=== PATIENT | female | born 1950 | race Caucasian/White ===

== ENCOUNTER → 2017-01-23 | Outpatient (CLI) | payer BC ==
--- NOTE | 2017-01-24 08:00 | MM ---
Reason for exam: screening (asymptomatic). Last mammogram was performed 1 year and 4 months ago. History: Patient is postmenopausal and history of colon cancer. Took estrogen for 2 years. Physical Findings: A clinical breast exam by your physician is recommended on an annual basis and results should be correlated with mammographic findings. MG Screening Mammo w CAD Bilateral CC and MLO view(s) were taken. Prior study comparison: September 11, 2015, bilateral MG screening mammo w CAD. August 27, 2013, [facility] DIGITAL RIGHT MAMMOGRAM w/CAD. August 20, 2013, bilateral digital screening mammo w/CAD. February 24, 2011, bilateral digital screening mammo w/CAD. The breast tissue is extremely dense which could obscure a lesion on mammography. No significant changes when compared with prior studies. ASSESSMENT: Negative, BI-RAD 1 RECOMMENDATION: Routine screening mammogram of both breasts in 1 year.
== END | disposition home or self-care (01) ==
LOC: RADMAMWWP 15:11
PROVIDERS: ATTEND Internal Medicine
DX: Z12.31 Encounter for screening mammogram for malignant neoplasm of breast (principal)

== ENCOUNTER → 2017-08-29 | Outpatient (CLI) | payer MEDICARE ==
--- NOTE | 2017-08-29 11:10 | US ---
EXAMINATION TYPE: US neck and supraclavicular region DATE OF EXAM: 08/29/2017 COMPARISON: NONE CLINICAL HISTORY: R59.0 Localized enlarged lymph nodes. Patient stated has enlarged lymph nodes x 1 m onth at upper neck with right side > left side, and also noted midline skin neck prominence. US NECK: multiple lymph nodes are imaged at bilateral upper neck with largest right node = 1.2 x 1.5x 0.5cm and largest left neck lymph node = 2.2 x 1.4 x 0.7cm. US of bilateral supraclavicular area sh ows right node = 1.2 x 1.4 x 0.5cm. At midline skin prominence no masses are seen by US. Prominent le ft neck vein is noted unlike right neck with left diameter change from small superiorly to prominent mid and small diameter again inferiorly. Brief survey of bilateral thyroid gland showed small single nodule per side: RIGHT: # of nodules measured on right: 1 1. 0.5 X 0.4 x 0.3 cm hypoechoic mixed nodule at the mid pole with well-defined margins. This nodu le is wider than tall and shows intranodular vascularity. LEFT: # of nodules measured on left: 1 1. 0.3 X 0.2 x 0.1 cm hypoechoic cystic nodule at the mid pole with well-defined margins. This nod ule is wider than tall and shows no intranodular vascularity. ISTHMUS: # of nodules measured in the isthmus: 0 Benign-appearing lymph nodes are identified by technologist throughout the bilateral neck. Visualized portion of the thyroid show small nodules. IMPRESSION: Prominent but benign-appearing bilateral neck lymph nodes. No suspicious lymphadenopathy or mass iden tified.
== END | disposition home or self-care (01) ==
LOC: RADUSWWP 08:11
PROVIDERS: ATTEND Internal Medicine
DX: R59.0 Localized enlarged lymph nodes (principal)
CPT/HCPCS: 76536

== ENCOUNTER 2018-01-18 17:26 | Emergency (ER) | payer MEDICARE ==
[2018-01-18 17:35] VITALS: RESP 18
[2018-01-18] MEDS ORDERED: SODIUM CHLORIDE 0.9% 1,000 ML IV STA (18:11)
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
[2018-01-18 19:04] LABS: ALT 190 U/L (9-52); AST 164 U/L (14-36); Albumin 4.1 g/dL (3.5-5.0); Alkaline Phosphatase 122 U/L (38-126); Amylase 51 U/L (30-110); Anion Gap 10 mmol/L; Blood Urea Nitrogen 12 mg/dL (7-17); Calcium 9.9 mg/dL (8.4-10.2); Carbon Dioxide 27 mmol/L (22-30); Chloride 97 mmol/L (98-107); Glucose 120 mg/dL (74-99); Lipase 330 U/L (23-300); Sodium 134 mmol/L (137-145); Total Bilirubin 1.1 mg/dL (0.2-1.3); Total Protein 6.8 g/dL (6.3-8.2)
[2018-01-18 19:05] LABS: Anisocytosis Moderate; HCT 36.5 % (34.0-46.0); HGB 12.4 gm/dL (11.4-16.0); MCHC 33.9 g/dL (31.0-37.0); MCV 91.5 fL (80.0-100.0); Mean Platelet Volume 7.2; Platelet Count 180 k/uL (150-450); RBC 3.99 m/uL (3.80-5.40); RDW 20.1 % (11.5-15.5)
[2018-01-18 19:09] LABS: WBC 1.7 k/uL (3.8-10.6)
[2018-01-18 19:19] LABS: Appearance,Urine Clear (Clear); Bilirubin,Urine Negative (Negative); Blood,Urine Negative (Negative); Color,Urine Yellow; Glucose,Urine (UA) Negative (Negative); Ketones,Urine Negative (Negative); Leukocyte Esterase,Urine Negative (Negative); Nitrite,Urine Negative (Negative); Protein,Urine Negative (Negative); Specific Gravity,Urine 1.022 (1.001-1.035); Urobilinogen,Urine <2.0 mg/dL (<2.0)
[2018-01-18 19:19] LABS: Potassium 3.4 mmol/L (3.5-5.1)
[2018-01-18 19:31] LABS: Eosinophils # (M) 0.03 k/uL (0-0.7); Lymphocytes # (M) 0.66 k/uL (1.0-4.8); Monocytes # (M) 0.17 k/uL (0-1.0); Neutrophils # (M) 0.83 k/uL (1.3-7.7); Neutrophils % (M) 49 %; Nucleated Red Blood Cells 0 /100 WBC (0-0); Polychromasia Present; Total Cells Counted 100
--- NOTE | 2018-01-18 19:37 | XR ---
EXAMINATION TYPE: XR KUB DATE OF EXAM: 01/18/2018 COMPARISON: NONE HISTORY: Abdominal pain TECHNIQUE: 2 views FINDINGS: 2 upright views of the abdomen were obtained and show no sign of intestinal obstruction. There is air in the right paraspinal region of the upper abdomen that apparently is air related to il eal colic anastomosis. I see no definite free air. Fecal pattern is normal. There is oral contrast in the large bowel. Lung bases are clear. There are no pathologic calcifications over the kidneys. IMPRESSION: Nonacute abdomen.
[2018-01-18 20:53] VITALS: BP 153/79; PULSE 72; TEMP 97.6
== END 2018-01-18 20:53 | disposition home or self-care (01) ==
LOC: EC 17:26
DX: D70.1 Agranulocytosis secondary to cancer chemotherapy (principal); T45.1X5A Adverse effect of antineoplastic and immunosuppressive drugs, initial encounter; R93.3 Abnormal findings on diagnostic imaging of other parts of digestive tract; C20 Malignant neoplasm of rectum; R59.0 Localized enlarged lymph nodes; N83.202 Unspecified ovarian cyst, left side; Z87.891 Personal history of nicotine dependence; I10 Essential (primary) hypertension; Z79.82 Long term (current) use of aspirin; Z79.899 Other long term (current) drug therapy; Z85.038 Personal history of other malignant neoplasm of large intestine; Z90.49 Acquired absence of other specified parts of digestive tract
CPT/HCPCS: 99284 ×2; 96360 ×2; 36415; 80053; 82150; 82565; 83605; 83690; 84520; 85025; 81003; 87040; 74018; 71260; 74177; Q9967; J1642

== ENCOUNTER → 2018-01-18 | Outpatient (CLI) | payer MEDICARE ==
[2018-01-18 13:38] LABS: Blood Urea Nitrogen 13 mg/dL (7-17)
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
== END | disposition home or self-care (01) ==
LOC: RADPROMAIN 12:48
PROVIDERS: ATTEND Internal Medicine Hematology & Oncology
DX: C78.7 Secondary malignant neoplasm of liver and intrahepatic bile duct (principal); C18.2 Malignant neoplasm of ascending colon; Q51.818 Other congenital malformations of uterus; K63.89 Other specified diseases of intestine; N83.202 Unspecified ovarian cyst, left side; R59.0 Localized enlarged lymph nodes; R91.1 Solitary pulmonary nodule
CPT/HCPCS: 82565; 84520; 71260; 74177; Q9967; J1642

== ENCOUNTER 2018-03-26 09:39 | Emergency (ER) | payer MEDICARE ==
[2018-03-26 09:46] VITALS: RESP 16
[2018-03-26] MEDS ORDERED: SODIUM CHLORIDE 0.9% 1,000 ML IV ONE (10:40)
[2018-03-26 11:21] LABS: Appearance,Urine Clear (Clear); Bilirubin,Urine Negative (Negative); Blood,Urine Small (Negative); Color,Urine Light Yellow; Glucose,Urine (UA) Negative (Negative); Ketones,Urine Negative (Negative); Leukocyte Esterase,Urine Negative (Negative); Nitrite,Urine Negative (Negative); Protein,Urine Negative (Negative); Specific Gravity,Urine 1.004 (1.001-1.035); Squamous Epithelial Cell,Urine <1 /hpf (0-4); Urobilinogen,Urine <2.0 mg/dL (<2.0); WBC,Urine <1 /hpf (0-5)
[2018-03-26 11:23] LABS: INR 1.1 (<1.2); Partial Thromboplastin Time 22.8 sec (22.0-30.0); Prothrombin Time 10.7 sec (9.0-12.0)
[2018-03-26 11:26] LABS: ALT 74 U/L (9-52); AST 91 U/L (14-36); Albumin 3.2 g/dL (3.5-5.0); Alkaline Phosphatase 165 U/L (38-126); Anion Gap 8 mmol/L; Blood Urea Nitrogen 8 mg/dL (7-17); Calcium 8.8 mg/dL (8.4-10.2); Carbon Dioxide 32 mmol/L (22-30); Chloride 98 mmol/L (98-107); Glucose 100 mg/dL (74-99); Sodium 138 mmol/L (137-145); Total Bilirubin 0.9 mg/dL (0.2-1.3); Total Protein 5.5 g/dL (6.3-8.2)
--- NOTE | 2018-03-26 11:27 | ED ---
Female Urogenital HPI <Nasir Salvador - Last Filed: 03/26/18 13:39> - General Source: patient, RN notes reviewed, old records reviewed Mode of arrival: ambulatory Limitations: no limitations <FrankCelia - Last Filed: 03/26/18 13:59> - General Chief complaint: Vaginal Bleeding Stated complaint: Urogenital Time Seen by Provider: 03/26/18 10:21 - History of Present Illness Initial comments: This patient's a 67-year-old female history of ovarian cancer currently undergoing chemotherapy treatment. She reports that every 2 weeks she receives chemotherapy through her port. Patient presents today chief complaint of an abnormal bulge in her pelvic region. Patient states that she noticed some vaginal bleeding and a bulge when she looked with a mere. Patient states that she's had no heavy lifting. She denies any significant pain or tenderness. She states that she's had no fever or chills. No changes in urination or bowel habits. No vomiting. Patient states that she's also had a few episodes of diarrhea earlier in the week. Patient denies any recent fever, chills, shortness of breath, chest pain, back pain, abdominal pain, numbness or tingling, dysuria or hematuria, constipation or diarrhea, headaches or visual changes, or any other current symptoms (Celia Marie) - Related Data Home Medications Medication Instructions Recorded Confirmed Aspirin 81 mg PO DAILY 09/22/17 03/26/18 Calcium Carbonate [Calcium] 1,200 mg PO DAILY 09/22/17 03/26/18 Flaxseed Oil [Paul [employer]s-3 Flaxseed Oil] 1,000 mg PO DAILY 09/22/17 03/26/18 Lisinopril-Hctz 10-12.5 mg 1 tab PO DAILY 09/22/17 03/26/18 [Zestoretic 10-12.5] Multivitamin with Iron 1 tab PO DAILY 09/22/17 03/26/18 [Multivitamins with Iron] Red Yeast Rice 600 mg PO DAILY 09/22/17 03/26/18 L.acidoph,Paracasei, B.lactis 1 cap PO DAILY 01/18/18 03/26/18 [Probiotic] Potassium 99 mg PO DAILY 03/26/18 03/26/18 Previous Rx's Medication Instructions Recorded Magnesium Oxide [Mag-Oxide] 200 mg PO DAILY #7 tablet 03/26/18 Potassium Chloride ER [K-Dur 20] 20 meq PO BID #10 tab 03/26/18 Allergies Allergy/AdvReac Type Severity Reaction Status Date / Time No Known Allergies Allergy Verified 03/26/18 09:51 Review of Systems ROS Other: All systems not noted in ROS Statement are negative. <Nasir Salvador - Last Filed: 03/26/18 13:39> ROS Other: All systems not noted in ROS Statement are negative. <Chrystal Marieily - Last Filed: 03/26/18 13:59> ROS Statement: Those systems with pertinent positive or pertinent negative responses have been documented in the HPI. Past Medical History Past Medical History: Cancer, Hypertension Additional Past Medical History / Comment(s): heart murmur, palpatations, intestinal polyp, colon cancer (last chemo 03/13/18), ovarian tumor History of Any Multi-Drug Resistant Organisms: None Reported Past Surgical History: Bowel Resection Additional Past Surgical History / Comment(s): 6" colon removed in 2011 Past Anesthesia/Blood Transfusion Reactions: No Reported Reaction Past Psychological History: No Psychological Hx Reported Smoking Status: Former smoker Past Alcohol Use History: Occasional Past Drug Use History: None Reported <Celia Marie - Last Filed: 03/26/18 13:59> General Exam <[place]Nasir - Last Filed: 03/26/18 13:39> Limitations: no limitations General appearance: alert, in no apparent distress Head exam: Present: atraumatic, normocephalic, normal inspection Eye exam: Present: normal appearance, PERRL, EOMI. Absent: scleral icterus, conjunctival injection, periorbital swelling ENT exam: Present: normal exam, mucous membranes moist Neck exam: Present: normal inspection. Absent: tenderness, meningismus, lymphadenopathy Respiratory exam: Present: normal lung sounds bilaterally. Absent: respiratory distress, wheezes, rales, rhonchi, stridor Cardiovascular Exam: Present: regular rate, normal rhythm, normal heart sounds. Absent: systolic murmur, diastolic murmur, rubs, gallop, clicks GI/Abdominal exam: Present: soft, normal bowel sounds. Absent: distended, tenderness, guarding, rebound, rigid External exam: Present: normal external exam Speculum exam: Present: other (Patient appears to have what appears to be a uterine prolapse. Small amount of bleeding from the cervical os.). Absent: normal speculum exam By manual exam: Present: normal by manual exam. Absent: cervical motion tenderness, adnexal tenderness, adnexal mass, uterine enlargement, uterine tenderness Extremities exam: Present: normal inspection, full ROM, normal capillary refill. Absent: tenderness, pedal edema, joint swelling, calf tenderness Back exam: Present: normal inspection Neurological exam: Present: alert, oriented X3, CN II-XII intact <Celia Marie - Last Filed: 03/26/18 13:59> - General Exam Comments Initial Comments: This is a 67-year-old female. Alert and oriented. No acute distress. ( Celia Marie) Vital Signs 03/26/18 03/26/18 03/26/18 09:43 12:52 13:49 Temperature 98.4 F 97.8 F 98.2 F Pulse Rate 110 H 66 69 Respiratory 16 16 16 Rate Blood Pressure 143/79 152/67 142/66 O2 Sat by Pulse 100 100 100 Oximetry - Reevaluation(s) Reevaluation #1: 03/26/18 13:39 PA supervision: I did personally do a [id number] encounter with the patient did discuss findings with her and did review the imaging and lab work the patient had performed. I do agree with the assessment and plan. (Nasir Salvador) Medical Decision Making - Lab Data Result diagrams: 03/26/18 11:01 03/26/18 11:01 <Nasir Salvador - Last Filed: 03/26/18 13:39> - Lab Data Result diagrams: 03/26/18 11:01 03/26/18 11:01 - Radiology Data Radiology results: report reviewed <Celia Marie - Last Filed: 03/26/18 13:59> - Medical Decision Making 67-year-old female presents with a uterine bulge. Patient was concerned she's been no some minor bleeding from it. Denies any heavy lifting or feeling of the bulge. Patient appears to have a uterine prolapse on vaginal exam. She does have history of ovarian cancer. With this history 100 check further lab work. She is undergoing chemo treatment.Patient's lab work shows a pink a white blood cell count of 2.5. RBCs 3.09. Hemoglobin 11.1. Chem panel does reveal low potassium of 2.5. She reports she is chronically low potassium. He states this also contributed to her dehydration and slightly from diarrhea. She does have a low magnesium as well 1.4. Given magnesium oxide. She does have elevated liver enzymes 91 AST, ALTs 74. Alk phos 165. Patient's UA is negative for any infection. Patient informed of lab results. I discussed that I'll give her dose of potassium here in the emergency department. Patient is anxious to leave. She will not stay for IV potassium. I also will replace her magnesium. Discussed that she does follow up with her primary care provider regards to a symptoms of diarrhea likely contaminated to the low potassium. Patient also had a transvaginal ultrasound. Results were dictated below. Discussed that she needs follow-up with her coordinate measuring machine technician and oncologist regards to the results. Patient agrees treatment plan will comply. Discussed lab coordinate measuring machine technician regards to uterine prolapse as well as a history of ovarian cancer and possibility of endometrial cancer swell. Patient understands treatment plan will comply. Return parameters were discussed. (Celia Marie) - Lab Data Lab Results 03/26/18 03/26/18 03/26/18 Range/Units 11:01 11:01 11:01 WBC 2.5 L (3.8-10.6) k/uL RBC 3.09 L (3.80-5.40) m/uL Hgb 11.1 L (11.4-16.0) gm/dL Hct 32.1 L (34.0-46.0) % MCV 104.1 H (80.0-100.0) fL MCH 36.1 H (25.0-35.0) pg MCHC 34.7 (31.0-37.0) g/dL RDW 16.5 H (11.5-15.5) % Plt Count 150 (150-450) k/uL Neutrophils % (Manual) 29 % Lymphocytes % (Manual) 49 % Monocytes % (Manual) 20 % Eosinophils % (Manual) 2 % Neutrophils # (Manual) 0.73 L (1.3-7.7) k/uL Lymphocytes # (Manual) 1.23 (1.0-4.8) k/uL Monocytes # (Manual) 0.50 (0-1.0) k/uL Eosinophils # (Manual) 0.05 (0-0.7) k/uL Nucleated RBCs 0 (0-0) /100 WBC Poikilocytosis (manual Present Anisocytosis Slight Macrocytosis Moderate PT 10.7 (9.0-12.0) sec INR 1.1 (<1.2) APTT 22.8 (22.0-30.0) sec Sodium 138 (137-145) mmol/L Potassium 2.5 L* (3.5-5.1) mmol/L Chloride 98 (98-107) mmol/L Carbon Dioxide 32 H (22-30) mmol/L Anion Gap 8 mmol/L BUN 8 (7-17) mg/dL Creatinine 0.43 L (0.52-1.04) mg/dL Est GFR (CKD-EPI)AfAm >90 (>60 ml/min/1.73 sqM) Est GFR (CKD-EPI)NonAf >90 (>60 ml/min/1.73 sqM) Glucose 100 H (74-99) mg/dL Calcium 8.8 (8.4-10.2) mg/dL Magnesium (1.6-2.3) mg/dL Total Bilirubin 0.9 (0.2-1.3) mg/dL AST 91 H (14-36) U/L ALT 74 H (9-52) U/L Alkaline Phosphatase 165 H (38-126) U/L Total Protein 5.5 L (6.3-8.2) g/dL Albumin 3.2 L (3.5-5.0) g/dL Urine Color Urine Appearance (Clear) Urine pH (5.0-8.0) Ur Specific [place] (1.001-1.035) Urine Protein (Negative) Urine Glucose (UA) (Negative) Urine Ketones (Negative) Urine Blood (Negative) Urine Nitrite (Negative) Urine Bilirubin (Negative) Urine Urobilinogen (<2.0) mg/dL Ur Leukocyte Esterase (Negative) Urine WBC (0-5) /hpf Ur Squamous Epith Cells (0-4) /hpf 03/26/18 03/26/18 Range/Units 11:01 11:01 WBC (3.8-10.6) k/uL RBC (3.80-5.40) m/uL Hgb (11.4-16.0) gm/dL Hct (34.0-46.0) % MCV (80.0-100.0) fL MCH (25.0-35.0) pg MCHC (31.0-37.0) g/dL RDW (11.5-15.5) % Plt Count (150-450) k/uL Neutrophils % (Manual) % Lymphocytes % (Manual) % Monocytes % (Manual) % Eosinophils % (Manual) % Neutrophils # (Manual) (1.3-7.7) k/uL Lymphocytes # (Manual) (1.0-4.8) k/uL Monocytes # (Manual) (0-1.0) k/uL Eosinophils # (Manual) (0-0.7) k/uL Nucleated RBCs (0-0) /100 WBC Poikilocytosis (manual Anisocytosis Macrocytosis PT (9.0-12.0) sec INR (<1.2) APTT (22.0-30.0) sec Sodium (137-145) mmol/L Potassium (3.5-5.1) mmol/L Chloride (98-107) mmol/L Carbon Dioxide (22-30) mmol/L Anion Gap mmol/L BUN (7-17) mg/dL Creatinine (0.52-1.04) mg/dL Est GFR (CKD-EPI)AfAm (>60 ml/min/1.73 sqM) Est GFR (CKD-EPI)NonAf (>60 ml/min/1.73 sqM) Glucose (74-99) mg/dL Calcium (8.4-10.2) mg/dL Magnesium 1.4 L (1.6-2.3) mg/dL Total Bilirubin (0.2-1.3) mg/dL AST (14-36) U/L ALT (9-52) U/L Alkaline Phosphatase (38-126) U/L Total Protein (6.3-8.2) g/dL Albumin (3.5-5.0) g/dL Urine Color Light Yellow Urine Appearance Clear (Clear) Urine pH 7.0 (5.0-8.0) Ur Specific [place] 1.004 (1.001-1.035) Urine Protein Negative (Negative) Urine Glucose (UA) Negative (Negative) Urine Ketones Negative (Negative) Urine Blood Small H (Negative) Urine Nitrite Negative (Negative) Urine Bilirubin Negative (Negative) Urine Urobilinogen <2.0 (<2.0) mg/dL Ur Leukocyte Esterase Negative (Negative) Urine WBC <1 (0-5) /hpf Ur Squamous Epith Cells <1 (0-4) /hpf - Radiology Data X-ray shows thickened heterogeneous endometrium measuring 1.1 cm. Differential could include endometrial hyperplasia, polyps and endometrial carcinoma. Follow -up is recommended. There is too fundal uterine fibroids each measuring 2.8 and 2.3. Is a 2.2 cm solid lesion in the right ovary. Ovarian neoplasm is the differential. Considering contrast enhanced MRI of the pelvis to better characterize. (Celia Marie) Disposition <Nasir Salvador - Last Filed: 03/26/18 13:39> Is patient prescribed a controlled substance at d/c from ED?: No If prescribed controlled substance>3 days was MAPS reviewed?: No When asked, does pt state using other controlled substances?: No Time of Disposition: 13:30 <Celia Marie - Last Filed: 03/26/18 13:59> Clinical Impression: Uterine prolapse, History of ovarian cancer, Hypokalemia, Hypomagnesemia Disposition: HOME SELF-CARE Condition: Good Instructions: Uterine Prolapse (ED) Additional Instructions: Follow-up with primary care provider regards to low potassium and magnesium also. Patient can replace them appropriately within prescriptions. Follow-up with her oncologist and coordinate measuring machine technician. Scheduled appointment with a coordinate measuring machine technician to discuss uterine prolapse. Return to the emergency department if any alarming signs or symptoms occur. Prescriptions: Magnesium Oxide [Mag-Oxide] 200 mg PO DAILY #7 tablet Potassium Chloride ER [K-Dur 20] 20 meq PO BID #10 tab Referrals: Summer Reza MD [Primary Care Provider] - 1-2 days Germaine Sheldon MD [STAFF PHYSICIAN] - 1-2 days
[2018-03-26 11:28] LABS: Potassium 2.5 mmol/L (3.5-5.1)
[2018-03-26 11:31] LABS: Anisocytosis Slight; HCT 32.1 % (34.0-46.0); HGB 11.1 gm/dL (11.4-16.0); MCH 36.1 pg (25.0-35.0); MCHC 34.7 g/dL (31.0-37.0); MCV 104.1 fL (80.0-100.0); Macrocytosis Moderate; Mean Platelet Volume 7.7; Platelet Count 150 k/uL (150-450); RBC 3.09 m/uL (3.80-5.40); RDW 16.5 % (11.5-15.5); WBC 2.5 k/uL (3.8-10.6)
[2018-03-26] MEDS ORDERED: POTASSIUM CHLORIDE ER 20 MEQ TAB.ER PO STA (11:41)
--- NOTE | 2018-03-26 12:07 | US ---
EXAMINATION TYPE: US transvaginal DATE OF EXAM: 03/26/2018 COMPARISON: CT 01/18/2018 CLINICAL HISTORY: 67-year-old female Pain. Pt states light vaginal bleeding that started this AM, and a "bulging" in the vagina TECHNIQUE: Transvaginal (TV). Date of LMP: age 51 FINDINGS: EXAM MEASUREMENTS: Uterus: 7.2 x 3.9 x 5.2 cm Endometrial Stripe: 1.1 cm Right Ovary: 3.0 x 2.3 x 1.7 cm Left Ovary: 2.1 x 1.0 1.0 cm 1. Uterus: Retroverted there are 2 fundal fibroids, on the right measuring 2.7 x 2.8 x 2.5 cm and on the left measuring 2.3 x 1.6 x 1.9 cm 2. Endometrium: Thickened, heterogeneous 3. Right Ovary: Hypoechoic, solid, vascular lesion= 2.2 x 1.6 x 1.4 cm 4. Left Ovary: Appeared wnl 5. Bilateral Adnexa: wnl 6. Posterior cul-de-sac: wnl IMPRESSION: 1. Thickened heterogeneous endometrium measuring 1.1 cm. Differential considerations include endometr ial hyperplasia, polyps, and endometrial carcinoma. Appropriate follow-up is recommended. 2. Two fundal uterine fibroids measuring 2.8 cm and 2.3 cm. 3. A 2.2 cm solid lesion in the right ovary. An ovarian neoplasm is in the differential. Consider con trast enhanced female pelvic MRI to better characterize.
[2018-03-26 12:14] LABS: Eosinophils # (M) 0.05 k/uL (0-0.7); Lymphocytes # (M) 1.23 k/uL (1.0-4.8); Neutrophils # (M) 0.73 k/uL (1.3-7.7); Neutrophils % (M) 29 %; Nucleated Red Blood Cells 0 /100 WBC (0-0); Total Cells Counted 100
[2018-03-26 12:15] LABS: Poikilocytosis (M) Present
[2018-03-26] MEDS ORDERED: MAGNESIUM OXIDE 400 MG TAB PO STA (13:26)
[2018-03-26 13:49] VITALS: BP 142/66; PULSE 69; TEMP 98.2
== END 2018-03-26 14:00 | disposition home or self-care (01) ==
LOC: EC 09:39
DX: N81.4 Uterovaginal prolapse, unspecified (principal); E87.6 Hypokalemia; E83.42 Hypomagnesemia; C56.9 Malignant neoplasm of unspecified ovary; I10 Essential (primary) hypertension; Z85.038 Personal history of other malignant neoplasm of large intestine; Z87.891 Personal history of nicotine dependence; Z79.82 Long term (current) use of aspirin; Z79.899 Other long term (current) drug therapy
CPT/HCPCS: 36415; 76830; 80053; 81001; 83735; 85025; 85610; 85730; 93975; 96360; 99284

== ENCOUNTER → 2018-05-18 | Outpatient (CLI) | payer MEDICARE ==
[2018-05-18 11:37] LABS: Blood Urea Nitrogen 10 mg/dL (7-17)
--- NOTE | 2018-05-18 12:54 | CT ---
EXAMINATION TYPE: CT ChestAbdPelvis w con DATE OF EXAM: 05/18/2018 COMPARISON: 01/18/2018 HISTORY: Colon cancer, Metastatic to liver CT DLP: 547.20 mGycm CONTRAST: CT scan of the chest, abdomen and pelvis is performed with Oral Contrast and with IV Contrast, patien t injected with 100 ml mL of Isovue 300. CT Chest: LUNGS: The lungs are clear and free of infiltrate or atelectasis. No pulmonary nodule or mass is det ected. No pleural effusion or CT evidence of interstitial lung disease. MEDIASTINUM: Thoracic aorta is of normal caliber. The heart is not enlarged. No evidence for media stinal mass or adenopathy. HILAR STRUCTURES: No evidence for mass. No hilar adenopathy is appreciated. OTHER: No significant abnormality. CONTRAST CT ABDOMEN AND PELVIS FINDINGS: LIVER/GB: Multiple hypoattenuating lesions are again seen throughout the liver however appear to be l ess distinct and less in number versus prior examination. The largest lesion measures 1.4 cm within t he anterior segment right hepatic lobe versus 2 cm previously. Stable simple cyst left hepatic lobe t he falciform ligament measuring 3 cm. Gallbladder is unremarkable. PANCREAS: No inflammation. No distinct mass. SPLEEN: No splenic enlargement. No lesion seen. ADRENALS: Stable left adrenal nodule. Right adrenal gland is unremarkable. No thickening. KIDNEYS/BLADDER: No hydronephrosis. No nephrolithiasis. Simple cyst upper pole left kidney. BOWEL: Postoperative changes of partial right hemicolectomy. Normal bowel caliber. No inflammation. GENITAL ORGANS: Leiomyomatous change of the uterus is stable. LYMPH NODES: Enlarging adenopathy to the right of the celiac axis measuring 2.6 cm versus 1.6 cm prev iously. Calcified lymph node anterior to the right psoas musculature. Shotty retroperitoneal lymph no de seen measuring less than 1 cm. AORTA: No significant abnormality. OSSEOUS STRUCTURES: No significant abnormality is seen. OTHER: No significant additional abnormality is seen. IMPRESSION: 1. Decrease in overall number and size of hepatic lesions. 2. Enlarging adenopathy to the right of the celiac artery. 3. Improving retroperitoneal adenopathy. 4. Stable left adrenal nodule.
== END | disposition home or self-care (01) ==
LOC: RADCTMAIN 10:49
PROVIDERS: ATTEND Internal Medicine Hematology & Oncology
DX: C78.7 Secondary malignant neoplasm of liver and intrahepatic bile duct (principal); C18.2 Malignant neoplasm of ascending colon; E27.8 Other specified disorders of adrenal gland; R59.1 Generalized enlarged lymph nodes
CPT/HCPCS: 82565; 84520; 71260; 74177; 36415; Q9967

== ENCOUNTER → 2018-08-09 | Outpatient (CLI) | payer MEDICARE ==
--- NOTE | 2018-08-09 11:21 | CT ---
EXAMINATION TYPE: CT ChestAbdPelvis w con DATE OF EXAM: 08/09/2018 COMPARISON: Prior CT chest abdomen pelvis 05/18/2018 HISTORY: Colon carcinoma, C 18.2, subsequent CT DLP: 601.4 mGycm Automated exposure control for dose reduction was used. CONTRAST: CT scan of the chest, abdomen and pelvis is performed with Oral Contrast and with IV Contrast, patien t injected with 100 mL of Isovue 300. FINDINGS: LUNGS: There are bilateral pleural effusions which have developed in the interval. Bilateral lung nod ules are present and has developed in the interval, right upper lobe soft tissue mass axial image 25 measures 11 mm, axial image 18 shows right upper lobe mass measuring 10 to 11 mm. Subcentimeter nodul e noted axial image 11 right upper lobe. Left upper lobe nodularity also present axial image 9 and 13 , subcentimeter nodules are present also on axial image 23 and 25, 26. MEDIASTINUM: Extensive mediastinal and hilar adenopathy has developed in the interval. Prevascular no wade are present, precarinal no, subcarinal node are all enlarged, bilateral hilar nodes are enlarged. AORTA: No significant abnormality is seen. OTHER: No additional significant abnormality is seen. LIVER/GB: 2 numerous to count low dense foci are scattered within the liver and a developed in the in terval. The largest measures approximately 7.2 cm. PANCREAS: No significant abnormality is seen. SPLEEN: No significant abnormality is seen. ADRENALS: No significant abnormality is seen. KIDNEYS: No significant abnormality is seen. REPRODUCTIVE ORGANS: No gross abnormality seen. BOWEL: No significant abnormality is seen. FREE AIR: No Free Air visible. ASCITES: There is some free fluid about the liver and along the paracolic gutters and in the pelvis. RETROPERITONEAL ADENOPATHY: Large retroperitoneal mass may represent confluent adenopathy and measur es from the level of the diaphragms inferiorly to the proximal common iliac vessels approximately 19 cm in cephalad to caudal dimension by 9.2 cm in transverse dimension by 10 cm in AP dimension encasin g the superior mesenteric artery and branches, portion of the proximal superior mesenteric artery, sp lenic vein and proximal renal arteries, portion of the spinal cord splenoportal confluence. There is some displacement of the inferior vena cava anteriorly. Encasement of the aorta is noted. LYMPH NODES: Adenopathy also present within the pelvis anterior to the uterus, there is some mass eff ect on the urinary bladder. Extensive mesenteric adenopathy is present. URINARY BLADDER: No significant abnormality is seen. PELVIC ADENOPATHY: Fluid density mass pelvis causes some mass effect on the urinary bladder.. OSSEOUS STRUCTURES: No significant abnormality is seen. IMPRESSION: Extensive metastatic disease is noted and has developed in the interval.
== END ==
LOC: RADPROMAIN 07:35
PROVIDERS: ATTEND Internal Medicine Hematology & Oncology
DX: C18.2 Malignant neoplasm of ascending colon (principal); C78.01 Secondary malignant neoplasm of right lung; R59.0 Localized enlarged lymph nodes
CPT/HCPCS: 82565; 84520; 71260; 74177; J1642; Q9967

== ENCOUNTER 2018-08-18 06:49 | Inpatient (IN) | payer MEDICARE ==
[2018-08-18] MEDS ORDERED: SODIUM CHLORIDE 0.9% 1,000 ML IV STA (07:11)
--- NOTE | 2018-08-18 07:20 | ED ---
General Adult HPI - General Chief complaint: Weakness Stated complaint: weakness Time Seen by Provider: 08/18/18 07:00 Source: patient, RN notes reviewed Mode of arrival: EMS Limitations: physical limitation - History of Present Illness Initial comments: This is a 68-year-old female who presents to the emergency department with a past medical history significant for colon cancer. Patient also received chemotherapy last chemotherapy treatment was on Monday. Patient comes in today because she states she was too weak to even get out of bed this morning. Patient states she has a little bit of occasional abdominal pain and occasional diarrhea. Patient is not complaining of any headache patient does not complain of any focal numbness or weakness. Patient denies any lightheadedness or near syncopal so. Patient denies any chest pain palpitations difficulty breathing or shortness of breath though she does complain of a mild cough occasionally. Patient denies any fever but she states she does have the chills. Patient denies any dysuria hematuria urinary frequency. Patient states she did have one fall and hurt her right lower back a little bit. Patient denies any hip pain or lower extremity pain. Patient denies any areas of erythema rash or lesions. - Related Data Home Medications Medication Instructions Recorded Confirmed Aspirin 81 mg PO DAILY 09/22/17 03/26/18 Calcium Carbonate [Calcium] 1,200 mg PO DAILY 09/22/17 03/26/18 Flaxseed Oil [[place]-3 Flaxseed Oil] 1,000 mg PO DAILY 09/22/17 03/26/18 Lisinopril-Hctz 10-12.5 mg 1 tab PO DAILY 09/22/17 03/26/18 [Zestoretic 10-12.5] Multivitamin with Iron 1 tab PO DAILY 09/22/17 03/26/18 [Multivitamins with Iron] Red Yeast Rice 600 mg PO DAILY 09/22/17 03/26/18 L.acidoph,Paracasei, B.lactis 1 cap PO DAILY 01/18/18 03/26/18 [Probiotic] Potassium 99 mg PO DAILY 03/26/18 03/26/18 Previous Rx's Medication Instructions Recorded Magnesium Oxide [Mag-Oxide] 200 mg PO DAILY #7 tablet 03/26/18 Potassium Chloride ER [K-Dur 20] 20 meq PO BID #10 tab 03/26/18 Allergies Allergy/AdvReac Type Severity Reaction Status Date / Time No Known Allergies Allergy Verified 03/26/18 09:51 Review of Systems ROS Statement: Those systems with pertinent positive or pertinent negative responses have been documented in the HPI. ROS Other: All systems not noted in ROS Statement are negative. Past Medical History Past Medical History: Cancer, Hypertension Additional Past Medical History / Comment(s): heart murmur, palpatations, intestinal polyp, colon cancer (last chemo 08/12/2018), ovarian tumor History of Any Multi-Drug Resistant Organisms: None Reported Past Surgical History: Bowel Resection Additional Past Surgical History / Comment(s): 6" colon removed in 2011 Past Anesthesia/Blood Transfusion Reactions: No Reported Reaction Past Psychological History: No Psychological Hx Reported Smoking Status: Former smoker Past Alcohol Use History: Occasional Past Drug Use History: None Reported General Exam - General Exam Comments Initial Comments: GENERAL: Patient is well-developed and well-nourished. Patient is nontoxic and well- hydrated and is in mild distress. ENT: Neck is soft and supple. No significant lymphadenopathy is noted. Oropharynx is clear. Moist mucous membranes. Neck has full range of motion without eliciting any pain. EYES: The sclera were anicteric and conjunctiva were pink and moist. Extraocular movements were intact and pupils were equal round and reactive to light. Eyelids were unremarkable. PULMONARY: Crackles left base CARDIOVASCULAR: There is a regular rate and rhythm without any murmurs gallops or rubs. ABDOMEN: Soft and nontender with normal bowel sounds. No palpable organomegaly was noted. There is no palpable pulsatile mass. SKIN: Skin is clear with no lesions or rashes and otherwise unremarkable. NEUROLOGIC: Patient is alert and oriented x3. Cranial nerves II through XII are grossly intact. Motor and sensory are also intact. Normal speech, volume and content. Symmetrical smile. MUSCULOSKELETAL: Normal extremities with adequate strength and full range of motion. No lower extremity swelling or edema. No calf tenderness. LYMPHATICS: No significant lymphadenopathy is noted PSYCHIATRIC: Normal psychiatric evaluation. Normal interpersonal interactions appears functionally intact in deals appropriately with others. No signs of depression. No signs of anxiety. Limitations: physical limitation Course Vital Signs 08/18/18 08/18/18 06:52 08:24 Temperature 97.0 F L Pulse Rate 101 H 86 Respiratory 19 18 Rate Blood Pressure 69/47 71/48 O2 Sat by Pulse 96 93 L Oximetry Medical Decision Making - Medical Decision Making EKG shows normal sinus rhythm at 90 bpm [place] interval 246 QRS 74 QT interval 352 QTC is 451. Patient's EKG shows no ST segment elevation or depression or T wave abnormalities are noted. Chest x-ray shows bilateral pleural effusions with bilateral airspace disease. Patient remained hypotensive after patient received 2 L of fluid so I started the patient on Levophed. I spoke with Dr. Bravo he wanted the patient treated on antibiotics specifically vancomycin and cefepime even though the patient was asymptomatic for pneumonia. At 10:30 I assumed the patient to be septic in light of the fact that we will treat for a possible pneumonia. I also got a potassium back and the patient was elevated at 7.1 it was a verified sample. I started the patient on Kayexalate insulin D50 bicarb and calcium chloride. I spoke with Dr. Alcantara because the patient will be going to the ICU. I also consult the nephrology and Dr. Bravo. I admitted the patient I wrote admitting orders. - Lab Data Result diagrams: 08/18/18 07:00 08/18/18 08:48 Lab Results 08/18/18 08/18/18 08/18/18 Range/Units 07:00 07:55 08:48 WBC 5.1 (3.8-10.6) k/uL RBC 3.62 L (3.80-5.40) m/uL Hgb 12.9 (11.4-16.0) gm/dL Hct 39.1 (34.0-46.0) % MCV 107.9 H (80.0-100.0) fL MCH 35.7 H (25.0-35.0) pg MCHC 33.1 (31.0-37.0) g/dL RDW 22.2 H (11.5-15.5) % Plt Count 147 L (150-450) k/uL Neutrophils % 65 % Lymphocytes % 29 % Monocytes % 4 % Eosinophils % 1 % Basophils % 0 % Neutrophils # 3.3 (1.3-7.7) k/uL Lymphocytes # 1.5 (1.0-4.8) k/uL Monocytes # 0.2 (0-1.0) k/uL Eosinophils # 0.0 (0-0.7) k/uL Basophils # 0.0 (0-0.2) k/uL Manual Slide Review Performed Polychromasia Present Hypochromasia Moderate Poikilocytosis (manual Present Anisocytosis Moderate Macrocytosis Marked PT (9.0-12.0) sec INR (<1.2) APTT (22.0-30.0) sec Sodium (137-145) mmol/L Potassium (3.5-5.1) mmol/L Chloride (98-107) mmol/L Carbon Dioxide (22-30) mmol/L Anion Gap mmol/L BUN (7-17) mg/dL Creatinine (0.52-1.04) mg/dL Est GFR (CKD-EPI)AfAm (>60 ml/min/1.73 sqM) Est GFR (CKD-EPI)NonAf (>60 ml/min/1.73 sqM) Glucose (74-99) mg/dL Plasma Lactic Acid Bryan 2.9 H* (0.7-2.0) mmol/L Calcium (8.4-10.2) mg/dL Magnesium (1.6-2.3) mg/dL Total Bilirubin (0.2-1.3) mg/dL AST (14-36) U/L ALT (9-52) U/L Alkaline Phosphatase (38-126) U/L Total Creatine Kinase 1246 H* (30-135) U/L CK-MB (CK-2) 3.7 H (0.0-2.4) ng/mL CK-MB (CK-2) Rel Index 0.3 Troponin I 0.077 H* (0.000-0.034) ng/mL Total Protein (6.3-8.2) g/dL Albumin (3.5-5.0) g/dL 08/18/18 08/18/18 Range/Units 08:48 08:48 WBC (3.8-10.6) k/uL RBC (3.80-5.40) m/uL Hgb (11.4-16.0) gm/dL Hct (34.0-46.0) % MCV (80.0-100.0) fL MCH (25.0-35.0) pg MCHC (31.0-37.0) g/dL RDW (11.5-15.5) % Plt Count (150-450) k/uL Neutrophils % % Lymphocytes % % Monocytes % % Eosinophils % % Basophils % % Neutrophils # (1.3-7.7) k/uL Lymphocytes # (1.0-4.8) k/uL Monocytes # (0-1.0) k/uL Eosinophils # (0-0.7) k/uL Basophils # (0-0.2) k/uL Manual Slide Review Polychromasia Hypochromasia Poikilocytosis (manual Anisocytosis Macrocytosis PT 15.5 H (9.0-12.0) sec INR 1.7 H (<1.2) APTT 27.4 (22.0-30.0) sec Sodium 137 (137-145) mmol/L Potassium 7.1 H* (3.5-5.1) mmol/L Chloride 108 H (98-107) mmol/L Carbon Dioxide 17 L (22-30) mmol/L Anion Gap 12 mmol/L BUN 90 H (7-17) mg/dL Creatinine 1.81 H (0.52-1.04) mg/dL Est GFR (CKD-EPI)AfAm 33 (>60 ml/min/1.73 sqM) Est GFR (CKD-EPI)NonAf 29 (>60 ml/min/1.73 sqM) Glucose 86 (74-99) mg/dL Plasma Lactic Acid Bryan (0.7-2.0) mmol/L Calcium 9.4 (8.4-10.2) mg/dL Magnesium 2.6 H (1.6-2.3) mg/dL Total Bilirubin 4.4 H (0.2-1.3) mg/dL AST >1500 H (14-36) U/L ALT 304 H (9-52) U/L Alkaline Phosphatase 700 H (38-126) U/L Total Creatine Kinase (30-135) U/L CK-MB (CK-2) (0.0-2.4) ng/mL CK-MB (CK-2) Rel Index Troponin I (0.000-0.034) ng/mL Total Protein 5.9 L (6.3-8.2) g/dL Albumin 2.8 L (3.5-5.0) g/dL Critical Care Time Critical Care Time: Yes Total Critical Care Time: 35 Disposition Clinical Impression: Hypotension, Hyperkalemia, Pneumonia, Elevated liver enzymes, Generalized weakness, Renal insufficiency Disposition: ADMITTED IP TO THIS HOSP Referrals: Summer Reza MD [Primary Care Provider] - 1-2 days Time of Disposition: 11:01
--- NOTE | 2018-08-18 07:39 | XR ---
EXAMINATION TYPE: XR chest 2V DATE OF EXAM: 08/18/2018 HISTORY: Weakness. REFERENCE: NONE. FINDINGS: There is bibasilar airspace disease. There are bilateral effusions. The heart is not enlarg ed. There is a MediPort in place via a right subclavian approach. IMPRESSION: 1. BIBASILAR AIRSPACE DISEASE. 2. BILATERAL EFFUSIONS.
[2018-08-18 08:01] LABS: Anisocytosis Moderate; Basophils % (A) 0 %; Eosinophils % (A) 1 %; HCT 39.1 % (34.0-46.0); HGB 12.9 gm/dL (11.4-16.0); Hypochromasia Moderate; Lymphocytes # (A) 1.5 k/uL (1.0-4.8); Lymphocytes % (A) 29 %; MCH 35.7 pg (25.0-35.0); MCHC 33.1 g/dL (31.0-37.0); MCV 107.9 fL (80.0-100.0); Macrocytosis Marked; Mean Platelet Volume 9.8; Monocytes # (A) 0.2 k/uL (0-1.0); Monocytes % (A) 4 %; Neutrophils # (A) 3.3 k/uL (1.3-7.7); Neutrophils % (A) 65 %; Platelet Count 147 k/uL (150-450); RBC 3.62 m/uL (3.80-5.40); RDW 22.2 % (11.5-15.5); WBC 5.1 k/uL (3.8-10.6)
[2018-08-18 08:16] LABS: Polychromasia Present
[2018-08-18 08:17] LABS: Poikilocytosis (M) Present
[2018-08-18 09:06] LABS: INR 1.7 (<1.2); Partial Thromboplastin Time 27.4 sec (22.0-30.0); Prothrombin Time 15.5 sec (9.0-12.0)
[2018-08-18 09:23] LABS: ALT 304 U/L (9-52); Albumin 2.8 g/dL (3.5-5.0); Alkaline Phosphatase 700 U/L (38-126); Anion Gap 12 mmol/L; Blood Urea Nitrogen 90 mg/dL (7-17); Calcium 9.4 mg/dL (8.4-10.2); Carbon Dioxide 17 mmol/L (22-30); Chloride 108 mmol/L (98-107); Glucose 86 mg/dL (74-99); Magnesium 2.6 mg/dL (1.6-2.3); Sodium 137 mmol/L (137-145); Total Bilirubin 4.4 mg/dL (0.2-1.3); Total Protein 5.9 g/dL (6.3-8.2)
[2018-08-18 09:51] LABS: Creatine Kinase MB 3.7 ng/mL (0.0-2.4)
[2018-08-18 10:00] LABS: Potassium 7.1 mmol/L (3.5-5.1)
[2018-08-18] MEDS ORDERED: CALCIUM CHLORIDE 100 MG/ML 10 ML SYRINGE IVP STA (10:00)
[2018-08-18] MEDS ORDERED: DEXTROSE 50%-WATER 50 ML SYRINGE IVP STA (10:01)
[2018-08-18] MEDS ORDERED: SODIUM BICARB 8.4% 50 ML SYR (1 MEQ/ML) IV STA (10:01)
[2018-08-18] MEDS ORDERED: INSULIN REGULAR 100 UNIT/ML VIAL IV ONE ×2 (10:01→21:45)
[2018-08-18] MEDS ORDERED: SODIUM POLYSTYRENE SULFONATE 15 GM/60 ML BOTTLE PO STA (10:02)
[2018-08-18 10:04] LABS: AST >1500 U/L (14-36)
[2018-08-18 10:05] LABS: Troponin I 0.077 ng/mL (0.000-0.034)
[2018-08-18] MEDS ORDERED: CEFEPIME 2 GM in SODIUM CHLORIDE 0.9% 50 ML IVPB STA (10:29)
[2018-08-18] MEDS ORDERED: VANCOMYCIN IV PER PHARMACY 1 EACH MISC MISCELLANE PRN (10:29)
[2018-08-18] MEDS ORDERED: VANCOMYCIN 1,000 MG in SODIUM CHLORIDE 0.9% 250 ML IVPB STA (10:31)
[2018-08-18] MEDS ORDERED: NOREPINEPHRINE 4 MG in SODIUM CHLORIDE 0.9% 250 ML IV ONE (10:31)
[2018-08-18] MEDS ORDERED: NALOXONE 0.4 MG/ML 1 ML VIAL IV PRN (11:03)
[2018-08-18 13:17] LABS: Phosphorus 4.8 mg/dL (2.5-4.5)
[2018-08-18 13:33] LABS: Uric Acid 20.9 mg/dL (3.7-7.4)
--- NOTE | 2018-08-18 13:59 | P.CNPUL ---
History of Present Illness Consult date: 08/18/18 Requesting physician: Chula Crawford Reason for consult: other (Acute sepsis and septic shock secondary to pneumonia) Chief complaint: Weakness History of present illness: This is a 68-year-old female with known history of metastatic colon cancer, metastatic to the liver, and most likely metastatic to the lungs. Patient presented to the ER with a few days' history of weakness, fatigue, poor appetite , weight loss, and not feeling well. Patient also had some shortness of breath , no cough, no wheezing, denies any fever, but she had some chills. Patient has been getting generally weak, unable to get out of bed. Last chemotherapy was last 1 day given by oncology. Patient also had some vague abdominal pain, occasional diarrhea, and occasional mild headaches and weakness. She had no symptoms of seizures, no syncopal episodes. Denies any dysuria frequency urgency, denies any hematuria, denies any melena or hematemesis. Upon arrival, patient was noted to be hypotensive, given at least 2 L of fluid boluses, remained hypotensive, and norepinephrine was started via a Port-A-Cath that she had for chemotherapy. Chest x-ray showed bilateral effusions and bibasilar airspace disease. Recent CT of the chest showed some nodules in both lungs consistent with possible metastatic disease to the lungs from colon cancer. She also had multiple liver lesions secondary to metastatic colon cancer. Review of Systems 14 point review of systems were obtained, please refer to pertinent positives in HPI, otherwise remaining systems are negative Past Medical History Past Medical History: Cancer, Hypertension Additional Past Medical History / Comment(s): heart murmur, palpatations, intestinal polyp, colon cancer (last chemo 08/12/2018), ovarian tumor History of Any Multi-Drug Resistant Organisms: None Reported Past Surgical History: Bowel Resection Additional Past Surgical History / Comment(s): 6" colon removed in 2011 Past Anesthesia/Blood Transfusion Reactions: No Reported Reaction Past Psychological History: No Psychological Hx Reported Smoking Status: Former smoker Past Alcohol Use History: Occasional Past Drug Use History: None Reported Medications and Allergies Home Medications Medication Instructions Recorded Confirmed Type Aspirin 81 mg PO DAILY 09/22/17 08/18/18 History Calcium Carbonate [Calcium] 1,200 mg PO DAILY 09/22/17 08/18/18 History Flaxseed Oil [[place]-3 Flaxseed Oil] 1,000 mg PO DAILY 09/22/17 08/18/18 History Lisinopril-Hctz 10-12.5 mg 1 tab PO DAILY 09/22/17 08/18/18 History [Zestoretic 10-12.5] Multivitamin with Iron 1 tab PO DAILY 09/22/17 08/18/18 History [Multivitamins with Iron] Red Yeast Rice 600 mg PO DAILY 09/22/17 08/18/18 History L.acidoph,Paracasei, B.lactis 1 cap PO DAILY 01/18/18 08/18/18 History [Probiotic] Magnesium Oxide [Mag-Oxide] 200 mg PO DAILY #7 tablet 03/26/18 08/18/18 Rx Doxycycline Hyclate [Vibramycin] 100 mg PO BID 08/18/18 08/18/18 History Gabapentin [Neurontin] 300 mg PO BID 08/18/18 08/18/18 History Omeprazole 40 mg PO DAILY 08/18/18 08/18/18 History Ondansetron [Zofran] 4 mg PO Q8HR PRN 08/18/18 08/18/18 History Potassium Chloride ER [K-Dur 20] 20 meq PO DAILY 08/18/18 08/18/18 History Allergies Allergy/AdvReac Type Severity Reaction Status Date / Time No Known Allergies Allergy Verified 08/18/18 11:18 Physical Exam Vitals: Vital Signs Temp Pulse Resp BP Pulse Ox 08/18/18 12:55 100 18 88/66 94 L 08/18/18 12:09 106 H 18 87/57 98 08/18/18 10:38 89 18 78/52 93 L 08/18/18 08:24 86 18 71/48 93 L 08/18/18 06:52 97.0 F L 101 H 19 69/47 96 Intake and Output 08/17/18 08/18/18 08/18/18 22:59 06:59 14:59 Intake Total 33.125 Balance 33.125 Intake: Intake, IV Titration 33.125 Amount Norepinephrine 4 mg In 33.125 Sodium Chloride 0.9% 250 ml @ Titrate IV .Q0M ONE Rx#:[id number] Other: Weight 55.338 kg GENERAL: Patient is a 68-year-old female, looks chronically ill, frail, weak, in no respiratory distress. ENT: no neck masses, no thyromegaly, no JVD. No cervical lymphadenopathy was appreciated. Dry mucous membranes noted. EYES: PERRLA, EOMI, no icterus. Pale conjunctivae. PULMONARY: Symmetrical chest expansion, fine crackles at the bases bilaterally, no rhonchi , no wheezes. CARDIOVASCULAR: Normal S1 and S2, no S3 gallop, no murmur. ABDOMEN: Soft and nontender no megaly with normal bowel sounds. SKIN: Skin is clear with no lesions or rashes and otherwise unremarkable. NEUROLOGIC: Patient is alert and oriented x3. No gross focal neurologic deficit MUSCULOSKELETAL: Normal extremities with adequate strength and full range of motion. LYMPHATICS: No palpable lymphadenopathy noted. PSYCHIATRIC: Normal mood, affect, and mental status examination. Results - Laboratory Findings CBC and BMP: 08/18/18 07:00 08/18/18 08:48 PT/INR, D-dimer PT 15.5 sec (9.0-12.0) H 08/18/18 08:48 INR 1.7 (<1.2) H 08/18/18 08:48 Abnormal lab findings: Abnormal Labs 08/18/18 08/18/18 08/18/18 07:00 07:55 07:55 RBC 3.62 L MCV 107.9 H MCH 35.7 H RDW 22.2 H Plt Count 147 L PT INR Potassium Chloride Carbon Dioxide BUN Creatinine Plasma Lactic Acid Bryan Uric Acid 20.9 H* Phosphorus 4.8 H Magnesium Total Bilirubin AST ALT Alkaline Phosphatase Total Creatine Kinase 1246 H* CK-MB (CK-2) 3.7 H Troponin I 0.077 H* Total Protein Albumin Stool Occult Blood 08/18/18 08/18/18 08/18/18 08:48 08:48 08:48 RBC MCV MCH RDW Plt Count PT 15.5 H INR 1.7 H Potassium 7.1 H* Chloride 108 H Carbon Dioxide 17 L BUN 90 H Creatinine 1.81 H Plasma Lactic Acid Bryan 2.9 H* Uric Acid Phosphorus Magnesium 2.6 H Total Bilirubin 4.4 H AST >1500 H ALT 304 H Alkaline Phosphatase 700 H Total Creatine Kinase CK-MB (CK-2) Troponin I Total Protein 5.9 L Albumin 2.8 L Stool Occult Blood 08/18/18 08/18/18 12:15 12:40 RBC MCV MCH RDW Plt Count PT INR Potassium Chloride Carbon Dioxide BUN Creatinine Plasma Lactic Acid Bryan 3.2 H* Uric Acid Phosphorus Magnesium Total Bilirubin AST ALT Alkaline Phosphatase Total Creatine Kinase CK-MB (CK-2) Troponin I Total Protein Albumin Stool Occult Blood Positive H - Diagnostic Findings Chest x-ray: image reviewed (As noted in HPI.) Assessment and Plan Assessment: Impression: 1 acute sepsis and septic shock, most likely source is her lungs, not to mention the patient is immunocompromised, and she has been receiving chemotherapy recently. 2 acute kidney injury and hyperkalemia, could be secondary to sepsis however I believe the presentation is mostly a presentation of tumor lysis syndrome. 3 suspect tumor lysis syndrome, patient presented with hyperkalemia, hyperphosphatemia, elevated CPK, elevated uric acid, however calcium was normal on presentation. 4 significant elevation in liver enzymes secondary to metastatic disease to the liver. Recommendation: Continue fluids, antibiotics, nephrology was consulted, will start the patient on rasburicase, possibly added loop diuretics, may even have to consider hemodialysis. Nephrology consultation is pending. Oncology staff is aware of the patient's presentation. We'll continue to follow patient will be admitted to the intensive care unit. She'll be closely monitored. Prognosis is definitely guarded. Time with Patient: Greater than 30
[2018-08-18] MEDS ORDERED: RASBURICASE 6 MG in SODIUM CHLORIDE 0.9% 46 ML IV ONE (15:00)
--- NOTE | 2018-08-18 16:59 | P.NPCON ---
History of Present Illness - Reason for Consult Consult date: 08/18/18 acute renal failure, hyperkalemia - Chief Complaint Tumor lysis syndrome - History of Present Illness This is a 68-year-old female seen in consultation because of tumor lysis syndrome. She came in because of weakness fatigue poor appetite and weight loss of about 30 pounds over the last few months. Her uric acid was 20, potassium was 7.1 bicarb 17 and anion gap is 12. Creatinine 1.81 with intravenous 90. Calcium is 9.4 and phosphorus 4.8. She has been on chemotherapy since approximately October her diagnosis of CA colon was maintained. She has metastatic disease to lungs and liver. Her chemotherapy was changed from IV to by mouth supposedly 6 weeks ago. No fever chills no nausea vomiting diarrhea. No abdominal pain. Past Medical History Past Medical History: Cancer, Hypertension Additional Past Medical History / Comment(s): heart murmur, palpatations, intestinal polyp, colon cancer (last chemo 08/12/2018), ovarian tumor History of Any Multi-Drug Resistant Organisms: None Reported Past Surgical History: Bowel Resection Additional Past Surgical History / Comment(s): 6" colon removed in 2011 Past Anesthesia/Blood Transfusion Reactions: No Reported Reaction Past Psychological History: No Psychological Hx Reported Smoking Status: Former smoker Past Alcohol Use History: Occasional Past Drug Use History: None Reported Medications and Allergies Home Medications Medication Instructions Recorded Confirmed Type Aspirin 81 mg PO DAILY 09/22/17 08/18/18 History Calcium Carbonate [Calcium] 1,200 mg PO DAILY 09/22/17 08/18/18 History Flaxseed Oil [[place]-3 Flaxseed Oil] 1,000 mg PO DAILY 09/22/17 08/18/18 History Lisinopril-Hctz 10-12.5 mg 1 tab PO DAILY 09/22/17 08/18/18 History [Zestoretic 10-12.5] Multivitamin with Iron 1 tab PO DAILY 09/22/17 08/18/18 History [Multivitamins with Iron] Red Yeast Rice 600 mg PO DAILY 09/22/17 08/18/18 History L.acidoph,Paracasei, B.lactis 1 cap PO DAILY 01/18/18 08/18/18 History [Probiotic] Magnesium Oxide [Mag-Oxide] 200 mg PO DAILY #7 tablet 03/26/18 08/18/18 Rx Doxycycline Hyclate [Vibramycin] 100 mg PO BID 08/18/18 08/18/18 History Gabapentin [Neurontin] 300 mg PO BID 08/18/18 08/18/18 History Omeprazole 40 mg PO DAILY 08/18/18 08/18/18 History Ondansetron [Zofran] 4 mg PO Q8HR PRN 08/18/18 08/18/18 History Potassium Chloride ER [K-Dur 20] 20 meq PO DAILY 08/18/18 08/18/18 History Allergies Allergy/AdvReac Type Severity Reaction Status Date / Time No Known Allergies Allergy Verified 08/18/18 11:18 Physical Exam Vitals: Vital Signs Temp Pulse Resp BP Pulse Ox 08/18/18 16:17 91 16 101/51 97 08/18/18 15:46 98 18 98/54 97 08/18/18 15:34 97 18 100/50 98 08/18/18 14:50 94 16 97/58 98 08/18/18 14:25 99 16 98/58 99 08/18/18 14:00 96 16 88/60 99 08/18/18 12:55 100 18 88/66 94 L 08/18/18 12:09 106 H 18 87/57 98 08/18/18 10:38 89 18 78/52 93 L 08/18/18 08:24 86 18 71/48 93 L 08/18/18 06:52 97.0 F L 101 H 19 69/47 96 Intake and Output 08/18/18 08/18/18 08/18/18 06:59 14:59 22:59 Intake Total 72.500 Balance 72.500 Intake: Intake, IV Titration 72.500 Amount Norepinephrine 4 mg In 72.500 Sodium Chloride 0.9% 250 ml @ Titrate IV .Q0M ONE Rx#:[id number] Other: Weight 55.338 kg On examination she is somewhat cachectic looking anxious female. HEENT exam no JVP lymphadenopathy thyromegaly neck is supple no facial asymmetry Lungs are clear to auscultation fairly good air entry bilaterally Heart sounds are unremarkable for any murmur rub gallop Abdomen soft hepatomegaly is noted. There is some tenderness over the right upper quadrant as well Extremity exam reveals no edema Neurologically awake alert oriented comfortable. Results - Lab Results Most recent lab results Calcium 9.4 mg/dL (8.4-10.2) 08/18/18 08:48 Phosphorus 4.8 mg/dL (2.5-4.5) H 08/18/18 07:55 Magnesium 2.6 mg/dL (1.6-2.3) H 08/18/18 08:48 08/18/18 07:00 08/18/18 08:48 Assessment and Plan Assessment: Impression 1. 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 Potassium was 7.1 and uric acid was 20. 2. Acute kidney injury, creatinine is 1.81, her baseline creatinine was 0.9 on 08/09/2018 a week ago. 3. Severe hyperkalemia partly also from lisinopril and potassium replacement at home. Patient has been given the usual cocktail 4. Non-gap acidosis, secondary to acute kidney injury. 5. Metastatic colon cancer with metastases to lungs and liver. 6. Possible sepsis Recommendation 1. Agree with use of rasburicase which has already been given. 2. We will give her IV normal saline at 150 mL an hour to ensure adequate diuresis to improve uric acid excretion. 3. Strict I's and O's. 4. Watch potassium and about 2 hours to ensure adequate resolution of hyperkalemia. 5. Calcium phosphorus might change monitor on a daily basis 6. Possible sepsis patient is on antibiotics has been pancultured 7. Po Bicarb as acidosis is mild
[2018-08-18 17:21] LABS: Glucose,Whole Blood 75 mg/dL (75-99)
[2018-08-18 17:24] LABS: Amorphous Sediment,Urine Rare /hpf; Appearance,Urine Cloudy (Clear); Bacteria,Urine Rare /hpf; Bilirubin,Urine Negative (Negative); Blood,Urine Moderate (Negative); Color,Urine Yellow; Glucose,Urine (UA) Negative (Negative); Ketones,Urine Negative (Negative); Leukocyte Esterase,Urine Moderate (Negative); Nitrite,Urine Negative (Negative); Protein,Urine Trace (Negative); RBC,Urine 3 /hpf (0-5); Specific Gravity,Urine 1.012 (1.001-1.035); Squamous Epithelial Cell,Urine 3 /hpf (0-4); Urobilinogen,Urine <2.0 mg/dL (<2.0); WBC,Urine 4 /hpf (0-5)
[2018-08-18 18:13] VITALS: BMI 22.7
[2018-08-18] MEDS: ONDANSETRON 4 MG/2 ML VIAL IVP PRN (18:25)
[2018-08-18] MEDS: NOREPINEPHRINE 4 MG in SODIUM CHLORIDE 0.9% 250 ML IV SCH ×3 (18:26→23:47)
[2018-08-18] MEDS ORDERED: SODIUM CHLORIDE 0.9% 1,000 ML IV ONE (18:29)
[2018-08-18] MEDS: SODIUM BICARBONATE TAB 650 MG TAB PO SCH ×2 (18:54→21:51)
[2018-08-18] MEDS: SODIUM CHLORIDE 0.9% 1,000 ML IV SCH ×2 (18:55→23:38)
[2018-08-18 19:32] LABS: Amorphous Sediment,Urine Occasional /hpf; Appearance,Urine Cloudy (Clear); Bilirubin,Urine Negative (Negative); Blood,Urine Small (Negative); Color,Urine Yellow; Glucose,Urine (UA) Negative (Negative); Granular Casts,Urine 8 /lpf (0); Hyaline Casts,Urine 13 /lpf (0-2); Ketones,Urine Negative (Negative); Leukocyte Esterase,Urine Negative (Negative); Mucus,Urine Rare /hpf; Nitrite,Urine Negative (Negative); Protein,Urine Trace (Negative); RBC,Urine 2 /hpf (0-5); Specific Gravity,Urine 1.013 (1.001-1.035); Squamous Epithelial Cell,Urine 1 /hpf (0-4); Urobilinogen,Urine <2.0 mg/dL (<2.0); WBC,Urine 9 /hpf (0-5)
[2018-08-18 20:09] LABS: Potassium 6.4 mmol/L (3.5-5.1)
[2018-08-18] MEDS: PANTOPRAZOLE 40 MG/10 ML VIAL IVP SCH (20:57)
[2018-08-18] MEDS ORDERED: CEFEPIME 2 GM in SODIUM CHLORIDE 0.9% 50 ML IVPB SCH (21:00)
--- NOTE | 2018-08-18 21:20 | P.HPIM ---
History of Present Illness This is a pleasant 68 years old female with past medical history of hypertension and colon Cancer status post chemotherapy last one was on 2017. History of ovarian tumor. Who presents because of mild dysurea of 1-2 days duration , with coughing and yellow phlegm about 3 days duration , and generalized weakness of few days also. pt has non specific abd pain , mild to moderate however pt does not look in distress Presentation patient was hypotensive with 69/47. With fluid resuscitations and management her blood pressure is up to 99/54 currently. No fever. WBC 5.1K. Hemoglobin 12.9. Platelets 147. INR is high as 1.7. High potassium morning at 7.1. Creatinine 1.8. Plasma lactic acid is 3.2. Uric acid is high 20.9. Elevated liver enzymes with AST more than 1500, and a LT 304. Urine analysis showing cloudy, with moderate blood and leukocyte esterase. Occult blood in the stool is positive. Chest x-ray shows bilateral pleural effusion medication reviewed: cefepime 2 gm, norepinephrine 4 mg, protnoix 40 mg , sodium bicarb 650 mg, sodium chloride at 150 ml/h, iv vanciomycin 1000 mg Review of Systems CONSTITUTIONAL: No fever, no malaise, no fatigue. HEENT: No recent visual problems or hearing problems. Denied any sore throat. CARDIOVASCULAR: No orthopnea, PND, no palpitations, no syncope. PULMONARY: No shortness of breath, no cough, no hemoptysis. GASTROINTESTINAL: No diarrhea, no nausea, no vomiting, no abdominal pain. Normoactive bowel sounds. NEUROLOGICAL: No headaches, no weakness, no numbness. HEMATOLOGICAL: Denies any bleeding or petechiae. GENITOURINARY: Denies any burning micturition, frequency, or urgency. MUSCULOSKELETAL/RHEUMATOLOGICAL: Denies any joint pain, swelling, or any muscle pain. ENDOCRINE: Denies any polyuria or polydipsia. Past Medical History Past Medical History: Cancer, Hypertension Additional Past Medical History / Comment(s): heart murmur, palpatations, intestinal polyp, colon cancer (last chemo 08/12/2018), ovarian tumor History of Any Multi-Drug Resistant Organisms: None Reported Past Surgical History: Bowel Resection Additional Past Surgical History / Comment(s): 6" colon removed in 2011 Past Anesthesia/Blood Transfusion Reactions: No Reported Reaction Past Psychological History: No Psychological Hx Reported Smoking Status: Former smoker Past Alcohol Use History: Occasional Past Drug Use History: None Reported Medications and Allergies Home Medications Medication Instructions Recorded Confirmed Type Aspirin 81 mg PO DAILY 09/22/17 08/18/18 History Calcium Carbonate [Calcium] 1,200 mg PO DAILY 09/22/17 08/18/18 History Flaxseed Oil [[place]-3 Flaxseed Oil] 1,000 mg PO DAILY 09/22/17 08/18/18 History Lisinopril-Hctz 10-12.5 mg 1 tab PO DAILY 09/22/17 08/18/18 History [Zestoretic 10-12.5] Multivitamin with Iron 1 tab PO DAILY 09/22/17 08/18/18 History [Multivitamins with Iron] Red Yeast Rice 600 mg PO DAILY 09/22/17 08/18/18 History L.acidoph,Paracasei, B.lactis 1 cap PO DAILY 01/18/18 08/18/18 History [Probiotic] Magnesium Oxide [Mag-Oxide] 200 mg PO DAILY #7 tablet 03/26/18 08/18/18 Rx Doxycycline Hyclate [Vibramycin] 100 mg PO BID 08/18/18 08/18/18 History Gabapentin [Neurontin] 300 mg PO BID 08/18/18 08/18/18 History Omeprazole 40 mg PO DAILY 08/18/18 08/18/18 History Ondansetron [Zofran] 4 mg PO Q8HR PRN 08/18/18 08/18/18 History Potassium Chloride ER [K-Dur 20] 20 meq PO DAILY 08/18/18 08/18/18 History Allergies Allergy/AdvReac Type Severity Reaction Status Date / Time No Known Allergies Allergy Verified 08/18/18 11:18 Physical Exam Vitals: Vital Signs Temp Pulse Resp BP Pulse Ox 08/18/18 17:08 98.2 F 101 H 16 99/54 98 08/18/18 16:47 90 16 98/59 98 08/18/18 16:17 91 16 101/51 97 08/18/18 15:46 98 18 98/54 97 08/18/18 15:34 97 18 100/50 98 08/18/18 14:50 94 16 97/58 98 08/18/18 14:25 99 16 98/58 99 08/18/18 14:00 96 16 88/60 99 08/18/18 12:55 100 18 88/66 94 L 08/18/18 12:09 106 H 18 87/57 98 08/18/18 10:38 89 18 78/52 93 L 08/18/18 08:24 86 18 71/48 93 L 08/18/18 06:52 97.0 F L 101 H 19 69/47 96 Intake and Output 08/18/18 08/18/18 08/18/18 06:59 14:59 22:59 Intake Total 72.500 Balance 72.500 Intake: Intake, IV Titration 72.500 Amount Norepinephrine 4 mg In 72.500 Sodium Chloride 0.9% 250 ml @ Titrate IV .Q0M ONE Rx#:[id number] Other: Weight 55.338 kg GENERAL: The patient is alert and oriented x3, not in any acute distress. Well developed, well nourished. HEENT: Pupils are round and equally reacting to light. EOMI. No scleral icterus. No conjunctival pallor. Normocephalic, atraumatic. No pharyngeal erythema. No thyromegaly. CARDIOVASCULAR: S1 and S2 present. No murmurs, rubs, or gallops. PULMONARY: Chest is clear to auscultation, no wheezing or crackles. ABDOMEN: Soft, nontender, nondistended, normoactive bowel sounds. No palpable organomegaly. MUSCULOSKELETAL: No joint swelling or deformity. EXTREMITIES: No cyanosis, clubbing, or pedal edema. NEUROLOGICAL: Gross neurological examination did not reveal any focal deficits. SKIN: No rashes. Results CBC & Chem 7: 08/18/18 07:00 08/18/18 19:00 Labs: Abnormal Lab Results - Last 24 Hours (Table) 08/18/18 08/18/18 08/18/18 Range/Units 07:00 07:55 07:55 RBC 3.62 L (3.80-5.40) m/uL MCV 107.9 H (80.0-100.0) fL MCH 35.7 H (25.0-35.0) pg RDW 22.2 H (11.5-15.5) % Plt Count 147 L (150-450) k/uL PT (9.0-12.0) sec INR (<1.2) Potassium (3.5-5.1) mmol/L Chloride (98-107) mmol/L Carbon Dioxide (22-30) mmol/L BUN (7-17) mg/dL Creatinine (0.52-1.04) mg/dL Plasma Lactic Acid Bryan (0.7-2.0) mmol/L Uric Acid 20.9 H* (3.7-7.4) mg/dL Phosphorus 4.8 H (2.5-4.5) mg/dL Magnesium (1.6-2.3) mg/dL Total Bilirubin (0.2-1.3) mg/dL AST (14-36) U/L ALT (9-52) U/L Alkaline Phosphatase (38-126) U/L Total Creatine Kinase 1246 H* (30-135) U/L CK-MB (CK-2) 3.7 H (0.0-2.4) ng/mL Troponin I 0.077 H* (0.000-0.034) ng/mL Total Protein (6.3-8.2) g/dL Albumin (3.5-5.0) g/dL Urine Appearance (Clear) Urine Protein (Negative) Urine Blood (Negative) Ur Leukocyte Esterase (Negative) Amorphous Sediment (None) /hpf Urine Bacteria (None) /hpf Stool Occult Blood (Negative) 08/18/18 08/18/18 08/18/18 Range/Units 08:48 08:48 08:48 RBC (3.80-5.40) m/uL MCV (80.0-100.0) fL MCH (25.0-35.0) pg RDW (11.5-15.5) % Plt Count (150-450) k/uL PT 15.5 H (9.0-12.0) sec INR 1.7 H (<1.2) Potassium 7.1 H* (3.5-5.1) mmol/L Chloride 108 H (98-107) mmol/L Carbon Dioxide 17 L (22-30) mmol/L BUN 90 H (7-17) mg/dL Creatinine 1.81 H (0.52-1.04) mg/dL Plasma Lactic Acid Bryan 2.9 H* (0.7-2.0) mmol/L Uric Acid (3.7-7.4) mg/dL Phosphorus (2.5-4.5) mg/dL Magnesium 2.6 H (1.6-2.3) mg/dL Total Bilirubin 4.4 H (0.2-1.3) mg/dL AST >1500 H (14-36) U/L ALT 304 H (9-52) U/L Alkaline Phosphatase 700 H (38-126) U/L Total Creatine Kinase (30-135) U/L CK-MB (CK-2) (0.0-2.4) ng/mL Troponin I (0.000-0.034) ng/mL Total Protein 5.9 L (6.3-8.2) g/dL Albumin 2.8 L (3.5-5.0) g/dL Urine Appearance (Clear) Urine Protein (Negative) Urine Blood (Negative) Ur Leukocyte Esterase (Negative) Amorphous Sediment (None) /hpf Urine Bacteria (None) /hpf Stool Occult Blood (Negative) 08/18/18 08/18/18 08/18/18 Range/Units 12:15 12:40 17:00 RBC (3.80-5.40) m/uL MCV (80.0-100.0) fL MCH (25.0-35.0) pg RDW (11.5-15.5) % Plt Count (150-450) k/uL PT (9.0-12.0) sec INR (<1.2) Potassium (3.5-5.1) mmol/L Chloride (98-107) mmol/L Carbon Dioxide (22-30) mmol/L BUN (7-17) mg/dL Creatinine (0.52-1.04) mg/dL Plasma Lactic Acid Bryan 3.2 H* (0.7-2.0) mmol/L Uric Acid (3.7-7.4) mg/dL Phosphorus (2.5-4.5) mg/dL Magnesium (1.6-2.3) mg/dL Total Bilirubin (0.2-1.3) mg/dL AST (14-36) U/L ALT (9-52) U/L Alkaline Phosphatase (38-126) U/L Total Creatine Kinase (30-135) U/L CK-MB (CK-2) (0.0-2.4) ng/mL Troponin I (0.000-0.034) ng/mL Total Protein (6.3-8.2) g/dL Albumin (3.5-5.0) g/dL Urine Appearance Cloudy H (Clear) Urine Protein Trace H (Negative) Urine Blood Moderate H (Negative) Ur Leukocyte Esterase Moderate H (Negative) Amorphous Sediment Rare H (None) /hpf Urine Bacteria Rare H (None) /hpf Stool Occult Blood Positive H (Negative) Assessment and Plan Assessment: Acute renal failure, creatinine on admission 1.8, compared to baseline 0.4 Possible sepsis/septic shock on admission, unknown source, possible UTI and/or pneumonia hyperkalemia Hypotension, and hypovolemia, resolving Elevated liver enzymes Elevated lactic acid colon Cancer status post chemotherapy last one was on 08/12/2018, with pulmonary and hepatic metastases on recent CT of the chest Positive occult blood in stool hypertension , patient presents with low blood pressure History of ovarian tumor. Plan: Recommended to continue with same treatment. Continue symptomatic treatment. Resume home medication. Follow-up vitals and labs. Critical care/pulmonary team consult is appreciated. Continue with pressors as indicated to keep the blood pressure up as per critical care team. Continue with IV fluid. Nephrology input is appreciated. GI and DVT prophylaxis. Further recommendation is based on the clinical course of the patient DVT prophylaxis: Continuous heparin GI Prophylaxis: Pepcid Prognosis is guarded
[2018-08-18] MEDS ORDERED: SODIUM POLYSTYRENE SULFONATE 15 GM/60 ML BOTTLE PO ONE (21:45)
[2018-08-18] MEDS ORDERED: DEXTROSE 50%-WATER 50 ML SYRINGE IVP ONE (21:45)
[2018-08-18] MEDS ORDERED: SODIUM BICARB IV SCH (22:00)
[2018-08-18] MEDS ORDERED: WATER IV SCH (22:00)
[2018-08-18] MEDS ORDERED: DEXTROSE 5% IV SCH (22:00)
[2018-08-19 01:24] LABS: Glucose,Whole Blood 88 mg/dL (75-99)
[2018-08-19] MEDS: ONDANSETRON 4 MG/2 ML VIAL IVP PRN (01:59)
[2018-08-19] MEDS: NOREPINEPHRINE 4 MG in SODIUM CHLORIDE 0.9% 250 ML IV SCH ×5 (02:43→19:41)
[2018-08-19 03:53] LABS: Albumin 2.6 g/dL (3.5-5.0); Calcium 9.1 mg/dL (8.4-10.2); Phosphorus 4.1 mg/dL (2.5-4.5); Potassium 5.7 mmol/L (3.5-5.1); Total Bilirubin 5.2 mg/dL (0.2-1.3); Total Protein 5.6 g/dL (6.3-8.2); Uric Acid 7.9 mg/dL (3.7-7.4)
[2018-08-19 03:58] LABS: Anisocytosis Moderate; Basophils % (A) 0 %; Eosinophils % (A) 0 %; HCT 41.9 % (34.0-46.0); HGB 13.2 gm/dL (11.4-16.0); Hypochromasia Moderate; Lymphocytes # (A) 0.8 k/uL (1.0-4.8); Lymphocytes % (A) 12 %; MCH 34.4 pg (25.0-35.0); MCHC 31.5 g/dL (31.0-37.0); MCV 109.4 fL (80.0-100.0); Macrocytosis Marked; Mean Platelet Volume 8.2; Monocytes # (A) 0.3 k/uL (0-1.0); Monocytes % (A) 5 %; Neutrophils # (A) 5.3 k/uL (1.3-7.7); Neutrophils % (A) 81 %; Platelet Count 157 k/uL (150-450); Poikilocytosis Slight; RBC 3.83 m/uL (3.80-5.40); RDW 22.7 % (11.5-15.5); WBC 6.6 k/uL (3.8-10.6)
[2018-08-19] MEDS: SODIUM CHLORIDE 0.9% 1,000 ML IV SCH ×3 (05:43→20:27)
--- NOTE | 2018-08-19 05:51 | XR ---
EXAMINATION TYPE: XR chest 1V DATE OF EXAM: 08/19/2018 HISTORY: shortness of breath. REFERENCE: Previous study dated 08/18/2018. FINDINGS: There is worsening bibasilar airspace disease. I suspect small, bilateral effusions. The he art is not enlarged. There is mild vascular congestion. There has been no interval change in the appe arance of the patient's Mediport on the right. IMPRESSION: CHANGES NOW MORE CONSISTENT WITH WORSENING HEART FAILURE.
[2018-08-19] MEDS ORDERED: VANCOMYCIN 1,000 MG in SODIUM CHLORIDE 0.9% 250 ML IVPB SCH (06:00)
[2018-08-19] MEDS: PANTOPRAZOLE 40 MG/10 ML VIAL IVP SCH (08:08)
[2018-08-19] MEDS: SODIUM BICARBONATE TAB 650 MG TAB PO SCH ×2 (08:08→13:07)
[2018-08-19 08:53] LABS: Calcium 9.2 mg/dL (8.4-10.2); Magnesium 1.9 mg/dL (1.6-2.3); Phosphorus 4.3 mg/dL (2.5-4.5); Potassium 5.7 mmol/L (3.5-5.1)
[2018-08-19] MEDS ORDERED: ENOXAPARIN 40 MG/0.4 ML SYRINGE SQ SCH (09:00)
[2018-08-19] MEDS ORDERED: CEFEPIME 2 GM in SODIUM CHLORIDE 0.9% 50 ML IVPB SCH (09:00)
[2018-08-19] MEDS ORDERED: RASBURICASE 6 MG in SODIUM CHLORIDE 0.9% 46 ML IV SCH (12:00)
--- NOTE | 2018-08-19 12:16 | P.PN ---
Subjective This is a pleasant 68 years old female with past medical history of hypertension and colon Cancer status post chemotherapy last one was on 2017. History of ovarian tumor. Who presents because of mild dysurea of 1-2 days duration , with coughing and yellow phlegm about 3 days duration , and generalized weakness of few days also. pt has non specific abd pain , mild to moderate however pt does not look in distress Presentation patient was hypotensive with 69/47. With fluid resuscitations and management her blood pressure is up to 99/54 currently. No fever. WBC 5.1K. Hemoglobin 12.9. Platelets 147. INR is high as 1.7. High potassium morning at 7.1. Creatinine 1.8. Plasma lactic acid is 3.2. Uric acid is high 20.9. Elevated liver enzymes with AST more than 1500, and a LT 304. Urine analysis showing cloudy, with moderate blood and leukocyte esterase. Occult blood in the stool is positive. Chest x-ray shows bilateral pleural effusion medication reviewed: cefepime 2 gm, norepinephrine 4 mg, protnoix 40 mg , sodium bicarb 650 mg, sodium chloride at 150 ml/h, iv vanciomycin 1000 mg 08/19/2018 Patient clinically looks the same as of yesterday. She is fully awake with mild abdominal pain/discomfort she denies chest pain ,. She is mildly dyspneic. She still generally weak. Vitals looks same as yesterday. Her labs are reviewed and most of them are improving except for liver enzymes were trending up. We will order a liver ultrasound, patient is known case of liver metastases.. Potassium is still elevated at 5.7. Creatinine 1.09. Repeat chest x-ray shows worsening CHF. 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 Objective - Vital Signs Vital signs: Vital Signs Temp 97.4 F L 08/19/18 08:00 Pulse 98 08/19/18 11:00 Resp 20 08/19/18 11:00 BP 92/69 08/19/18 11:00 Pulse Ox 91 L 08/19/18 11:00 Intake & Output 08/18/18 08/19/18 08/19/18 18:59 06:59 18:59 Intake Total 712.073 1673.375 1217.437 Output Total 400 1260 190 Balance -550.670 3340.375 1027.437 Weight 63.9 kg 64.8 kg Intake: IV 1775 750 Sodium Chloride 0.9% 1, 1650 750 000 ml @ 150 mls/hr IV . Q6H40M [facility] Rx#:[id number] Vancomycin 1,000 mg In 125 Sodium Chloride 0.9% 250 ml @ 125 mls/hr IVPB ONCE STA Rx#:[id number] Intake, IV Titration 666.645 6875.375 467.437 Amount Cefepime 2 gm In Sodium 50 Chloride 0.9% 50 ml @ 100 mls/hr IVPB Q8H [facility] Rx#: [id number] Norepinephrine 4 mg In 72.500 Sodium Chloride 0.9% 250 ml @ Titrate IV .Q0M ONE Rx#:[id number] Norepinephrine 4 mg In 885.375 417.437 Sodium Chloride 0.9% 250 ml @ Titrate IV .Q0M [facility] Rx#:[id number] Sodium Chloride 0.9% 1, 150 150 000 ml @ 999 mls/hr IV . Q1H1M [facility] Rx#:[id number] Output: Urine 400 1260 190 Other: Voiding Method Indwelling Catheter Indwelling Catheter - Exam GENERAL: The patient is alert and oriented x3, not in any acute distress. Well developed, well nourished. HEENT: Pupils are round and equally reacting to light. EOMI. No scleral icterus. No conjunctival pallor. Normocephalic, atraumatic. No pharyngeal erythema. No thyromegaly. CARDIOVASCULAR: S1 and S2 present. No murmurs, rubs, or gallops. PULMONARY: Chest is clear to auscultation, no wheezing or crackles. -ABDOMEN: Soft, right upper quadrant and left lower quadrant tenderness, no rebound tenderness nondistended, normoactive bowel sounds. No palpable organomegaly. MUSCULOSKELETAL: No joint swelling or deformity. EXTREMITIES: No cyanosis, clubbing, or pedal edema. NEUROLOGICAL: Gross neurological examination did not reveal any focal deficits. SKIN: No rashes. - Labs CBC & Chem 7: 08/19/18 03:21 08/19/18 07:54 Labs: Abnormal Lab Results - Last 24 Hours (Table) 08/18/18 08/18/18 08/18/18 Range/Units 07:55 12:15 12:40 MCV (80.0-100.0) fL RDW (11.5-15.5) % Lymphocytes # (1.0-4.8) k/uL Potassium (3.5-5.1) mmol/L Chloride (98-107) mmol/L Carbon Dioxide (22-30) mmol/L BUN (7-17) mg/dL Creatinine (0.52-1.04) mg/dL Plasma Lactic Acid Bryan 3.2 H* (0.7-2.0) mmol/L Uric Acid 20.9 H* (3.7-7.4) mg/dL Phosphorus 4.8 H (2.5-4.5) mg/dL Total Bilirubin (0.2-1.3) mg/dL AST (14-36) U/L ALT (9-52) U/L Alkaline Phosphatase (38-126) U/L Troponin I (0.000-0.034) ng/mL Total Protein (6.3-8.2) g/dL Albumin (3.5-5.0) g/dL Urine Appearance (Clear) Urine Protein (Negative) Urine Blood (Negative) Ur Leukocyte Esterase (Negative) Urine WBC (0-5) /hpf Amorphous Sediment (None) /hpf Urine Bacteria (None) /hpf Hyaline Casts (0-2) /lpf Urine Mucus (None) /hpf Stool Occult Blood Positive H (Negative) 08/18/18 08/18/18 08/18/18 Range/Units 17:00 19:00 19:10 MCV (80.0-100.0) fL RDW (11.5-15.5) % Lymphocytes # (1.0-4.8) k/uL Potassium 6.4 H* (3.5-5.1) mmol/L Chloride 115 H (98-107) mmol/L Carbon Dioxide 13 L (22-30) mmol/L BUN 78 H (7-17) mg/dL Creatinine 1.31 H (0.52-1.04) mg/dL Plasma Lactic Acid Bryan (0.7-2.0) mmol/L Uric Acid (3.7-7.4) mg/dL Phosphorus (2.5-4.5) mg/dL Total Bilirubin (0.2-1.3) mg/dL AST (14-36) U/L ALT (9-52) U/L Alkaline Phosphatase (38-126) U/L Troponin I (0.000-0.034) ng/mL Total Protein (6.3-8.2) g/dL Albumin (3.5-5.0) g/dL Urine Appearance Cloudy H Cloudy H (Clear) Urine Protein Trace H Trace H (Negative) Urine Blood Moderate H Small H (Negative) Ur Leukocyte Esterase Moderate H (Negative) Urine WBC 9 H (0-5) /hpf Amorphous Sediment Rare H Occasional H (None) /hpf Urine Bacteria Rare H (None) /hpf Hyaline Casts 13 H (0-2) /lpf Urine Mucus Rare H (None) /hpf Stool Occult Blood (Negative) 08/18/18 08/18/18 08/19/18 Range/Units 20:59 20:59 03:21 MCV 109.4 H (80.0-100.0) fL RDW 22.7 H (11.5-15.5) % Lymphocytes # 0.8 L (1.0-4.8) k/uL Potassium 6.0 H (3.5-5.1) mmol/L Chloride (98-107) mmol/L Carbon Dioxide (22-30) mmol/L BUN (7-17) mg/dL Creatinine (0.52-1.04) mg/dL Plasma Lactic Acid Bryan (0.7-2.0) mmol/L Uric Acid (3.7-7.4) mg/dL Phosphorus (2.5-4.5) mg/dL Total Bilirubin (0.2-1.3) mg/dL AST (14-36) U/L ALT (9-52) U/L Alkaline Phosphatase (38-126) U/L Troponin I 0.063 H* (0.000-0.034) ng/mL Total Protein (6.3-8.2) g/dL Albumin (3.5-5.0) g/dL Urine Appearance (Clear) Urine Protein (Negative) Urine Blood (Negative) Ur Leukocyte Esterase (Negative) Urine WBC (0-5) /hpf Amorphous Sediment (None) /hpf Urine Bacteria (None) /hpf Hyaline Casts (0-2) /lpf Urine Mucus (None) /hpf Stool Occult Blood (Negative) 08/19/18 08/19/18 08/19/18 Range/Units 03:21 03:21 07:54 MCV (80.0-100.0) fL RDW (11.5-15.5) % Lymphocytes # (1.0-4.8) k/uL Potassium 5.7 H 5.7 H (3.5-5.1) mmol/L Chloride 117 H 119 H (98-107) mmol/L Carbon Dioxide 13 L 13 L (22-30) mmol/L BUN 61 H 57 H (7-17) mg/dL Creatinine 1.05 H 1.09 H (0.52-1.04) mg/dL Plasma Lactic Acid Bryan (0.7-2.0) mmol/L Uric Acid 7.9 H (3.7-7.4) mg/dL Phosphorus (2.5-4.5) mg/dL Total Bilirubin 5.2 H (0.2-1.3) mg/dL AST 2567 H (14-36) U/L ALT 466 H (9-52) U/L Alkaline Phosphatase 653 H (38-126) U/L Troponin I 0.065 H* (0.000-0.034) ng/mL Total Protein 5.6 L (6.3-8.2) g/dL Albumin 2.6 L (3.5-5.0) g/dL Urine Appearance (Clear) Urine Protein (Negative) Urine Blood (Negative) Ur Leukocyte Esterase (Negative) Urine WBC (0-5) /hpf Amorphous Sediment (None) /hpf Urine Bacteria (None) /hpf Hyaline Casts (0-2) /lpf Urine Mucus (None) /hpf Stool Occult Blood (Negative) Microbiology - Last 24 Hours (Table) 08/18/18 19:10 Urine Culture - Preliminary Urine,Catheterized Assessment and Plan Assessment: Acute renal failure, creatinine on admission 1.8, compared to baseline 0.4 , mostly tumor lysis syndrome Possible sepsis/septic shock on admission, unknown source, possible UTI and/or pneumonia hyperkalemia Hypotension, and hypovolemia, resolving Elevated liver enzymes Elevated lactic acid colon Cancer status post chemotherapy last one was on 08/12/2018, with pulmonary and hepatic metastases on recent CT of the chest Positive occult blood in stool hypertension , patient presents with low blood pressure History of ovarian tumor. Plan: Recommended to continue with same treatment. Continue symptomatic treatment. Resume home medication. Follow-up vitals and labs. Critical care/pulmonary team consult is appreciated. Continue with pressors as indicated to keep the blood pressure up as per critical care team. Continue with IV fluid. Nephrology input is appreciated. Oncology consult. GI and DVT prophylaxis. Further recommendation is based on the clinical course of the patient DVT prophylaxis: Continuous heparin GI Prophylaxis: Pepcid Prognosis is guarded
[2018-08-19] MEDS ORDERED: SODIUM CHLORIDE 0.9% 500 ML 500 ML IV ONE (13:01)
--- NOTE | 2018-08-19 13:13 | P.PN ---
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 She was seen in consultation because of tumor lysis syndrome with severe hyperkalemia, uric acid was 28 potassium was 7.1 with acute kidney injury. Creatinine was 1.8. Her hyperkalemia is deemed to be from a combination of tumor lysis syndrome potassium as well as lisinopril that she was on at home She was started on rasburicase yesterday dated 08 18 2018. She continues to have hypotension and is on levo fed and has been fluid resuscitated. Urine output was maintained in the last few hours it has gone down. Patient remains awake alert on nasal cannula oxygen looks ill but otherwise not in any distress. Denies any shortness of breath cough. Her uric acid has responded very well, potassium is been controlled to 5.7. Past history significant for CA colon with partial colectomy 2011, and on 2017 she had her last chemo cycle Objective - Vital Signs Vital signs: Vital Signs Temp 97.4 F L 08/19/18 08:00 Pulse 98 08/19/18 11:00 Resp 20 08/19/18 11:00 BP 92/69 08/19/18 11:00 Pulse Ox 91 L 08/19/18 11:00 Intake & Output 08/18/18 08/19/18 08/19/18 18:59 06:59 18:59 Intake Total 164.055 9115.375 1217.437 Output Total 400 1260 190 Balance -675.731 8554.375 1027.437 Weight 63.9 kg 64.8 kg Intake: IV 1775 750 Sodium Chloride 0.9% 1, 1650 750 000 ml @ 150 mls/hr IV . Q6H40M [facility] Rx#:[id number] Vancomycin 1,000 mg In 125 Sodium Chloride 0.9% 250 ml @ 125 mls/hr IVPB ONCE [facility] Rx#:[id number] Intake, IV Titration 394.986 4012.375 467.437 Amount Cefepime 2 gm In Sodium 50 Chloride 0.9% 50 ml @ 100 mls/hr IVPB Q8H [facility] Rx#: [id number] Norepinephrine 4 mg In 72.500 Sodium Chloride 0.9% 250 ml @ Titrate IV .Q0M [facility] Rx#:[id number] Norepinephrine 4 mg In 885.375 417.437 Sodium Chloride 0.9% 250 ml @ Titrate IV .Q0M [facility] Rx#:[id number] Sodium Chloride 0.9% 1, 150 150 000 ml @ 999 mls/hr IV . Q1H1M [facility] Rx#:[id number] Output: Urine 400 1260 190 Other: Voiding Method Indwelling Catheter Indwelling Catheter On examination she is ill-looking female, comfortable at rest on nasal cannula HEENT exam no JVP neck is supple no facial asymmetry Lungs are clear to auscultation good air entry bilaterally Heart sounds are unremarkable for any murmur rub gallop Abdomen soft nontender no masses felt Extremity exam was no edema Neurologically awake alert oriented comfortable somewhat anxious. - Labs CBC & Chem 7: 08/19/18 03:21 08/19/18 07:54 Labs: Abnormal Lab Results - Last 24 Hours (Table) 08/18/18 08/18/18 08/18/18 Range/Units 07:55 12:40 17:00 MCV (80.0-100.0) fL RDW (11.5-15.5) % Lymphocytes # (1.0-4.8) k/uL Potassium (3.5-5.1) mmol/L Chloride (98-107) mmol/L Carbon Dioxide (22-30) mmol/L BUN (7-17) mg/dL Creatinine (0.52-1.04) mg/dL Plasma Lactic Acid Bryan 3.2 H* (0.7-2.0) mmol/L Uric Acid 20.9 H* (3.7-7.4) mg/dL Phosphorus 4.8 H (2.5-4.5) mg/dL Total Bilirubin (0.2-1.3) mg/dL AST (14-36) U/L ALT (9-52) U/L Alkaline Phosphatase (38-126) U/L Troponin I (0.000-0.034) ng/mL Total Protein (6.3-8.2) g/dL Albumin (3.5-5.0) g/dL Urine Appearance Cloudy H (Clear) Urine Protein Trace H (Negative) Urine Blood Moderate H (Negative) Ur Leukocyte Esterase Moderate H (Negative) Urine WBC (0-5) /hpf Amorphous Sediment Rare H (None) /hpf Urine Bacteria Rare H (None) /hpf Hyaline Casts (0-2) /lpf Urine Mucus (None) /hpf 08/18/18 08/18/18 08/18/18 Range/Units 19:00 19:10 20:59 MCV (80.0-100.0) fL RDW (11.5-15.5) % Lymphocytes # (1.0-4.8) k/uL Potassium 6.4 H* (3.5-5.1) mmol/L Chloride 115 H (98-107) mmol/L Carbon Dioxide 13 L (22-30) mmol/L BUN 78 H (7-17) mg/dL Creatinine 1.31 H (0.52-1.04) mg/dL Plasma Lactic Acid Bryan (0.7-2.0) mmol/L Uric Acid (3.7-7.4) mg/dL Phosphorus (2.5-4.5) mg/dL Total Bilirubin (0.2-1.3) mg/dL AST (14-36) U/L ALT (9-52) U/L Alkaline Phosphatase (38-126) U/L Troponin I 0.063 H* (0.000-0.034) ng/mL Total Protein (6.3-8.2) g/dL Albumin (3.5-5.0) g/dL Urine Appearance Cloudy H (Clear) Urine Protein Trace H (Negative) Urine Blood Small H (Negative) Ur Leukocyte Esterase (Negative) Urine WBC 9 H (0-5) /hpf Amorphous Sediment Occasional H (None) /hpf Urine Bacteria (None) /hpf Hyaline Casts 13 H (0-2) /lpf Urine Mucus Rare H (None) /hpf 08/18/18 08/19/18 08/19/18 Range/Units 20:59 03:21 03:21 MCV 109.4 H (80.0-100.0) fL RDW 22.7 H (11.5-15.5) % Lymphocytes # 0.8 L (1.0-4.8) k/uL Potassium 6.0 H 5.7 H (3.5-5.1) mmol/L Chloride 117 H (98-107) mmol/L Carbon Dioxide 13 L (22-30) mmol/L BUN 61 H (7-17) mg/dL Creatinine 1.05 H (0.52-1.04) mg/dL Plasma Lactic Acid Bryan (0.7-2.0) mmol/L Uric Acid 7.9 H (3.7-7.4) mg/dL Phosphorus (2.5-4.5) mg/dL Total Bilirubin 5.2 H (0.2-1.3) mg/dL AST 2567 H (14-36) U/L ALT 466 H (9-52) U/L Alkaline Phosphatase 653 H (38-126) U/L Troponin I (0.000-0.034) ng/mL Total Protein 5.6 L (6.3-8.2) g/dL Albumin 2.6 L (3.5-5.0) g/dL Urine Appearance (Clear) Urine Protein (Negative) Urine Blood (Negative) Ur Leukocyte Esterase (Negative) Urine WBC (0-5) /hpf Amorphous Sediment (None) /hpf Urine Bacteria (None) /hpf Hyaline Casts (0-2) /lpf Urine Mucus (None) /hpf 08/19/18 08/19/18 Range/Units 03:21 07:54 MCV (80.0-100.0) fL RDW (11.5-15.5) % Lymphocytes # (1.0-4.8) k/uL Potassium 5.7 H (3.5-5.1) mmol/L Chloride 119 H (98-107) mmol/L Carbon Dioxide 13 L (22-30) mmol/L BUN 57 H (7-17) mg/dL Creatinine 1.09 H (0.52-1.04) mg/dL Plasma Lactic Acid Bryan (0.7-2.0) mmol/L Uric Acid (3.7-7.4) mg/dL Phosphorus (2.5-4.5) mg/dL Total Bilirubin (0.2-1.3) mg/dL AST (14-36) U/L ALT (9-52) U/L Alkaline Phosphatase (38-126) U/L Troponin I 0.065 H* (0.000-0.034) ng/mL Total Protein (6.3-8.2) g/dL Albumin (3.5-5.0) g/dL Urine Appearance (Clear) Urine Protein (Negative) Urine Blood (Negative) Ur Leukocyte Esterase (Negative) Urine WBC (0-5) /hpf Amorphous Sediment (None) /hpf Urine Bacteria (None) /hpf Hyaline Casts (0-2) /lpf Urine Mucus (None) /hpf Microbiology - Last 24 Hours (Table) 08/18/18 19:10 Urine Culture - Preliminary Urine,Catheterized Assessment and Plan Assessment: Impression 1. 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 Potassium was 7.1 and uric acid was 20. 2. Acute kidney injury, creatinine is 1.81, her baseline creatinine was 0.9 on 08/09/2018 a week ago. Urine output down over the last few hours from hypotension 3. Severe hyperkalemia partly also from lisinopril and potassium replacement at home. Potassium down to 5.7 from 7.1. The persistent of high potassium and may indicate some intracellular release from the tumor cells. Also her urine output has gone down. 4. Non-gap acidosis, secondary to acute kidney injury. Persistent bicarb 13 with a gap of 13 therefore mostly non-gap from acute kidney injury. 5. Metastatic colon cancer with metastases to lungs and liver. 6. Possible sepsis. So far urine culture is negative Recommendation 1. Will give her a bolus of 500 mL normal saline because of the low blood pressure as well as the little low urine output with clear lungs. A chest x- ray is not indicated of CHF but it is likely represent her lung cancer. 2. Continue oral bicarb 650 4 times a day. 3. Continue maintenance of 150 mL of saline for right now. 4. Strict I's and O's. 5. Calcium phosphorus might change monitor on a daily basis 6. Monitor labs closely. Discussed with and patient.
--- NOTE | 2018-08-19 13:26 | P.PN ---
Subjective Progress Note Date: 08/19/18 Principal diagnosis: Acute septic shock and tumor lysis syndrome. This is a 68-year-old female with known history of metastatic colon cancer, metastatic to the liver, and most likely metastatic to the lungs. Patient presented to the ER with a few days' history of weakness, fatigue, poor appetite , weight loss, and not feeling well. Patient also had some shortness of breath , no cough, no wheezing, denies any fever, but she had some chills. Patient has been getting generally weak, unable to get out of bed. Last chemotherapy was last 1 day given by oncology. Patient also had some vague abdominal pain, occasional diarrhea, and occasional mild headaches and weakness. She had no symptoms of seizures, no syncopal episodes. Denies any dysuria frequency urgency, denies any hematuria, denies any melena or hematemesis. Upon arrival, patient was noted to be hypotensive, given at least 2 L of fluid boluses, remained hypotensive, and norepinephrine was started via a Port-A-Cath that she had for chemotherapy. Chest x-ray showed bilateral effusions and bibasilar airspace disease. Recent CT of the chest showed some nodules in both lungs consistent with possible metastatic disease to the lungs from colon cancer. She also had multiple liver lesions secondary to metastatic colon cancer. Patient was reevaluated today on 08/19/2018, remains in the intensive care unit , she seems to be quite ill, remains on norepinephrine at 26 mcg/m, blood pressure is rather marginal. She received significant amount of fluid boluses, and she remains on IV fluid at 1 50 mL per hour. Labs are showing some improvement, her uric acid is almost normal, her potassium is coming down nicely , it is down to 5.7. Patient is known to have history of metastatic colon cancer partial colectomy in 2011, and she had chemotherapy, last cycle was on . Presented to the ER with hypotension, significantly abnormal labs, including very elevated uric acid, hyperphosphatemia, hyperkalemia, normal calcium, and significantly abnormal liver enzymes. Patient tells me that she feels tiny bit better compared to how she felt yesterday. But she continues to complain of generalized weakness. Her chest x-ray continues to show by basilar airspace disease. Possibility of some component of pulmonary edema is not entirely ruled out, however the patient will not be able to tolerate any diuretics at this point. Her chest x-ray looked abnormal even before any fluid boluses were given yesterday. Hence I am more inclined to think that this is pneumonia rather than congestive heart failure. Objective - Vital Signs Vital signs: Vital Signs Temp 97.4 F L 08/19/18 08:00 Pulse 98 08/19/18 11:00 Resp 20 08/19/18 11:00 BP 92/69 08/19/18 11:00 Pulse Ox 91 L 08/19/18 11:00 Intake & Output 08/18/18 08/19/18 08/19/18 18:59 06:59 18:59 Intake Total 540.033 3438.375 1217.437 Output Total 400 1260 190 Balance -650.607 3668.375 1027.437 Weight 63.9 kg 64.8 kg Intake: IV 1775 750 Sodium Chloride 0.9% 1, 1650 750 000 ml @ 150 mls/hr IV . Q6H40M [facility] Rx#:[id number] Vancomycin 1,000 mg In 125 Sodium Chloride 0.9% 250 ml @ 125 mls/hr IVPB ONCE STA Rx#:[id number] Intake, IV Titration 840.432 5627.375 467.437 Amount Cefepime 2 gm In Sodium 50 Chloride 0.9% 50 ml @ 100 mls/hr IVPB Q8H [facility] Rx#: [id number] Norepinephrine 4 mg In 72.500 Sodium Chloride 0.9% 250 ml @ Titrate IV .Q0M [facility] Rx#:[id number] Norepinephrine 4 mg In 885.375 417.437 Sodium Chloride 0.9% 250 ml @ Titrate IV .Q0M [facility] Rx#:[id number] Sodium Chloride 0.9% 1, 150 150 000 ml @ 999 mls/hr IV . Q1H1M [facility] Rx#:[id number] Output: Urine 400 1260 190 Other: Voiding Method Indwelling Catheter Indwelling Catheter - Exam GENERAL: Patient is a 68-year-old female, looks chronically ill, not in any respiratory distress remains on nasal cannula. ENT: no neck masses, no thyromegaly, no JVD. No cervical lymphadenopathy was appreciated. EYES: PERRLA, EOMI, Positive icterus PULMONARY: Symmetrical chest expansion, fine crackles at the bases bilaterally, no rhonchi , no wheezes. CARDIOVASCULAR: Normal S1 and S2, no S3 gallop, no murmur. ABDOMEN: Soft and nontender no megaly with normal bowel sounds. SKIN: Skin is clear with no lesions or rashes NEUROLOGIC: Patient is alert and oriented x3. No gross focal neurologic deficit seems to be generally weak. MUSCULOSKELETAL: Normal extremities generally weak, normal range of motion. LYMPHATICS: No palpable lymphadenopathy noted. PSYCHIATRIC: Normal mood, affect, and mental status examination. - Labs CBC & Chem 7: 08/19/18 03:21 08/19/18 07:54 Labs: Abnormal Lab Results - Last 24 Hours (Table) 08/18/18 08/18/18 08/18/18 Range/Units 07:55 12:40 17:00 MCV (80.0-100.0) fL RDW (11.5-15.5) % Lymphocytes # (1.0-4.8) k/uL Potassium (3.5-5.1) mmol/L Chloride (98-107) mmol/L Carbon Dioxide (22-30) mmol/L BUN (7-17) mg/dL Creatinine (0.52-1.04) mg/dL Plasma Lactic Acid Bryan 3.2 H* (0.7-2.0) mmol/L Uric Acid 20.9 H* (3.7-7.4) mg/dL Phosphorus 4.8 H (2.5-4.5) mg/dL Total Bilirubin (0.2-1.3) mg/dL AST (14-36) U/L ALT (9-52) U/L Alkaline Phosphatase (38-126) U/L Troponin I (0.000-0.034) ng/mL Total Protein (6.3-8.2) g/dL Albumin (3.5-5.0) g/dL Urine Appearance Cloudy H (Clear) Urine Protein Trace H (Negative) Urine Blood Moderate H (Negative) Ur Leukocyte Esterase Moderate H (Negative) Urine WBC (0-5) /hpf Amorphous Sediment Rare H (None) /hpf Urine Bacteria Rare H (None) /hpf Hyaline Casts (0-2) /lpf Urine Mucus (None) /hpf 08/18/18 08/18/18 08/18/18 Range/Units 19:00 19:10 20:59 MCV (80.0-100.0) fL RDW (11.5-15.5) % Lymphocytes # (1.0-4.8) k/uL Potassium 6.4 H* (3.5-5.1) mmol/L Chloride 115 H (98-107) mmol/L Carbon Dioxide 13 L (22-30) mmol/L BUN 78 H (7-17) mg/dL Creatinine 1.31 H (0.52-1.04) mg/dL Plasma Lactic Acid Bryan (0.7-2.0) mmol/L Uric Acid (3.7-7.4) mg/dL Phosphorus (2.5-4.5) mg/dL Total Bilirubin (0.2-1.3) mg/dL AST (14-36) U/L ALT (9-52) U/L Alkaline Phosphatase (38-126) U/L Troponin I 0.063 H* (0.000-0.034) ng/mL Total Protein (6.3-8.2) g/dL Albumin (3.5-5.0) g/dL Urine Appearance Cloudy H (Clear) Urine Protein Trace H (Negative) Urine Blood Small H (Negative) Ur Leukocyte Esterase (Negative) Urine WBC 9 H (0-5) /hpf Amorphous Sediment Occasional H (None) /hpf Urine Bacteria (None) /hpf Hyaline Casts 13 H (0-2) /lpf Urine Mucus Rare H (None) /hpf 08/18/18 08/19/18 08/19/18 Range/Units 20:59 03:21 03:21 MCV 109.4 H (80.0-100.0) fL RDW 22.7 H (11.5-15.5) % Lymphocytes # 0.8 L (1.0-4.8) k/uL Potassium 6.0 H 5.7 H (3.5-5.1) mmol/L Chloride 117 H (98-107) mmol/L Carbon Dioxide 13 L (22-30) mmol/L BUN 61 H (7-17) mg/dL Creatinine 1.05 H (0.52-1.04) mg/dL Plasma Lactic Acid Bryan (0.7-2.0) mmol/L Uric Acid 7.9 H (3.7-7.4) mg/dL Phosphorus (2.5-4.5) mg/dL Total Bilirubin 5.2 H (0.2-1.3) mg/dL AST 2567 H (14-36) U/L ALT 466 H (9-52) U/L Alkaline Phosphatase 653 H (38-126) U/L Troponin I (0.000-0.034) ng/mL Total Protein 5.6 L (6.3-8.2) g/dL Albumin 2.6 L (3.5-5.0) g/dL Urine Appearance (Clear) Urine Protein (Negative) Urine Blood (Negative) Ur Leukocyte Esterase (Negative) Urine WBC (0-5) /hpf Amorphous Sediment (None) /hpf Urine Bacteria (None) /hpf Hyaline Casts (0-2) /lpf Urine Mucus (None) /hpf 08/19/18 08/19/18 Range/Units 03:21 07:54 MCV (80.0-100.0) fL RDW (11.5-15.5) % Lymphocytes # (1.0-4.8) k/uL Potassium 5.7 H (3.5-5.1) mmol/L Chloride 119 H (98-107) mmol/L Carbon Dioxide 13 L (22-30) mmol/L BUN 57 H (7-17) mg/dL Creatinine 1.09 H (0.52-1.04) mg/dL Plasma Lactic Acid Bryan (0.7-2.0) mmol/L Uric Acid (3.7-7.4) mg/dL Phosphorus (2.5-4.5) mg/dL Total Bilirubin (0.2-1.3) mg/dL AST (14-36) U/L ALT (9-52) U/L Alkaline Phosphatase (38-126) U/L Troponin I 0.065 H* (0.000-0.034) ng/mL Total Protein (6.3-8.2) g/dL Albumin (3.5-5.0) g/dL Urine Appearance (Clear) Urine Protein (Negative) Urine Blood (Negative) Ur Leukocyte Esterase (Negative) Urine WBC (0-5) /hpf Amorphous Sediment (None) /hpf Urine Bacteria (None) /hpf Hyaline Casts (0-2) /lpf Urine Mucus (None) /hpf Microbiology - Last 24 Hours (Table) 08/18/18 19:10 Urine Culture - Preliminary Urine,Catheterized Assessment and Plan Assessment: Impression: 1 acute sepsis and septic shock, most likely source is her lungs, not to mention the patient is immunocompromised, and she has been receiving chemotherapy recently. 2 acute kidney injury and hyperkalemia, could be secondary to sepsis however I believe the presentation is mostly a presentation of tumor lysis syndrome. 3 suspect tumor lysis syndrome, patient presented with hyperkalemia, hyperphosphatemia, elevated CPK, elevated uric acid, however calcium was normal on presentation. 4 significant elevation in liver enzymes secondary to metastatic disease to the liver. Jaundice is noted. Recommendation: Continue fluids, antibiotics, continue to monitor cultures. Address nutritional support, continue GI and DVT prophylaxis, continue to monitor her abnormal labs including CPK, uric acid, potassium, renal profile, calcium and phosphate. Continue norepinephrine, titrate accordingly to maintain a mean arterial pressure of 65 or higher. Prognosis is definitely poor and guarded, I touch bases with the patient regarding her CODE STATUS, patient wishes to be DO NOT RESUSCITATE, and she would like to discuss this with her . Again patient is critically ill, she will remain in the ICU, and we will continue to follow. Critical care time is 35 minutes. Time with Patient: Greater than 30
[2018-08-19] MEDS ORDERED: ALPRAZolam 0.5 MG TAB PO PRN (13:43)
[2018-08-19] MEDS ORDERED: GABAPENTIN 100 MG CAP PO STA ×2 (13:57→13:58)
--- NOTE | 2018-08-19 14:50 | US ---
EXAMINATION TYPE: US liver DATE OF EXAM: 08/19/2018 COMPARISON: NONE CLINICAL HISTORY: elevated liver enz . portable in icu, pt in poor condition EXAM MEASUREMENTS: Liver Length: 22.1 cm Gallbladder Wall: 0.4 cm CBD: ? 2.2 cm Right Kidney: 10.7 x 4.7 x 4.5 cm Some exam limitations due to poor pt condition and portable environment. Pancreas: gassed out Liver: hepatomegaly with multiple solid masses Gallbladder: not distended, limited, wnl as seen Evidence for sonographic Wells's sign: no CBD: ? dilated and compressing portal vn? Right Kidney: wnl IMPRESSION: Multiple solid liver masses consistent with metastatic disease. Intrahepatic bile ducts a re not dilated. The common bile duct appears to be dilated and measures 2.1 cm. Right pleural effusio n is noted.
[2018-08-19] MEDS ORDERED: LORazepam 2 MG/ML INJ IV PRN ×2 (16:52→20:32)
[2018-08-19] MEDS ORDERED: FUROSEMIDE 10 MG/ML 10 ML VIAL IV STA (16:52)
[2018-08-19] MEDS ORDERED: SODIUM CHLORIDE 0.9% 99 ML with VASOPRESSIN 20 UNIT IV SCH ×2 (17:00)
[2018-08-19 17:25] LABS: Calcium 8.7 mg/dL (8.4-10.2); Uric Acid 4.9 mg/dL (3.7-7.4)
[2018-08-19 17:51] LABS: Potassium 6.6 mmol/L (3.5-5.1)
[2018-08-19] MEDS ORDERED: SODIUM BICARB 8.4% 50 ML SYR (1 MEQ/ML) IV ONE (18:24)
[2018-08-19] MEDS ORDERED: CALCIUM GLUCONATE 1,000 MG in SODIUM CHLORIDE 0.9% 100 ML IVPB ONE (18:27)
[2018-08-19] MEDS ORDERED: INSULIN REGULAR 100 UNIT/ML VIAL IV ONE (18:28)
[2018-08-19] MEDS ORDERED: DEXTROSE 50%-WATER 50 ML SYRINGE IVP STA ×2 (18:28→18:39)
[2018-08-19 18:40] LABS: Glucose,Whole Blood 39 mg/dL (75-99)
[2018-08-19 18:53] LABS: Glucose,Whole Blood 102 mg/dL (75-99)
[2018-08-19] MEDS ORDERED: DEXTROSE 5% IN WATER 1,000 ML with SODIUM BICARB (1 MEQ/ML) 150 ML IV SCH (19:00)
[2018-08-19] MEDS ORDERED: MORPHINE SULFATE 2 MG/ML SYRINGE IV PRN (20:32)
[2018-08-19] MEDS ORDERED: ATROPINE OPHTH SOLN 1% 5ML BTL SUBLINGUAL PRN (20:32)
[2018-08-19] MEDS ORDERED: MORPHINE SULFATE (100 MG/2 ML) 100 MG in SODIUM CHLORIDE 0.9% 100 ML IV SCH (20:45)
[2018-08-19] MEDS ORDERED: SCOPOLAMINE 1.5MG/72HR PATCH TRANSDERM SCH (20:45)
[2018-08-19 21:41] VITALS: BP 88/66; PULSE 116; RESP 25; TEMP 98
[2018-08-20] MEDS ORDERED: VANCOMYCIN 1,250 MG in SODIUM CHLORIDE 0.9% 250 ML IVPB SCH (06:00)
--- NOTE | 2018-09-02 23:14 | P.CONS ---
History of Present Illness - Reason for Consult Consult date: 08/19/18 - History of Present Illness The patient is a 68-year-old white female, well known to myself. She was diagnosed with an ascending colon polyp that could not be removed, leading to colectomy in 2012. This was found to be a T1 N0 adenocarcinoma of the colon. Based on stage, adjuvant treatment was not recommended, appropriately. The patient was placed on close colonoscopic surveillance with most recent scope in 06/21, which was negative. The patient had noted some ill-defined nodules on the lower part of her neck, in 07/23. She had an ultrasound of the neck and supraclavicular region on , which showed prominent but benign appearing bilateral neck lymph nodes with the largest on the right being 1.2 1.5 cm, and the largest on the left being 2.21.4 cm. In the supraclavicular areas, there was a right-sided node measuring 1.2 x 1.4 cm. Small subcentimeter thyroid nodules were noted. the patient was seen by ENT. As the notes persisted, she had an ultrasound-guided fine-needle aspiration from the left supraclavicular region. The pathology showed metastatic non-small cell carcinoma consistent with primary colonic origin. Tumor was CK 20 and CD X2 positive, and negative for CK 7. The patient was referred here at this point. A PET scan was ordered and performed on 10/21/17. This was negative in the neck region but showed a 9 mm left periaortic lymph node in the mediastinum with SUV of 3.01. In the liver there were multiple hypodense lesions scattered through both lobes with the largest in the left measuring 3.4 cm, and the largest on the right measuring 3.5 cm. SUV values were 7.89, and 9.6 respectively. There appear to be peritoneal metastatic deposits with maximal SUV 10.89. There was also adenopathy in the pancreaticoduodenal groove measuring 3.91.9 cm with SUV of 8.42, abnormal retroperitoneal adenopathy with left periaortic node measuring 2.52.3 cm with SUV of 7.53. There was a hypermetabolic right pelvic mass ( likely the primary site, measuring 3.62.6 cm with SUV of 11.25. The the case was discussed with surgery, and colonoscopy was recommended. She had that on 10/17/17, now revealing a new ulcerated mass distal to the staple line. This was nonobstructing, occupying about 50% of the circumference. Biopsy showed rare clusters of highly atypical cells suspicious for poorly differentiated malignancy with immunostains again positive for CK 20 and CD X2, consistent with colon origin. The patient was seen for her first office visit on 10/24/17. K-marilee testing revealed wild type. MSI was not detected She was started on FOLFOX and is s/p 12 cycles, completing those by 04/19/18. Vectibix was added with C 4. 5 FU dose was reduced by 10% after C8, due to skin and oral toxicity, and by another 15 % after C10. Oxaliplatin dose was also reduced after C10 by 10%. She was started on Xeloda and Vectibix for maintenance in 05/23, with Xeloda 1 wk on 1 off. Her dose was reduced to 1150 BID in late 06/23 due to nausea and diarrhea Xeloda was held in 07/[address] to [address] scans from 08/23 showed major recurrence, with increase in adenopathy, as well as multiple lesions in b/l lungs, and liver. She was supposed to start Irinotecan and Vectibix later this week. The patient presented to the emergency room this time with multiple complaints, including marked weakness, decreased appetite, intermittent diarrhea, nausea, and decreased appetite. These symptoms had been slowly progressive over the past 2-3 weeks. These had become much more prominent over the last couple of days, especially since she completed her recent chemotherapy. In the ER she was noted to have severe hypertension, which did not respond initially to IV fluids. She was also noted to have evidence of acute kidney injury, elevated liver enzymes, and markedly elevated potassium. The case was discussed in detail with the emergency room physician. The clinical presentation was felt to be most concerning for possible sepsis, as well as tumor lysis syndrome (although the latter would be very rare with metastatic colon cancer). The patient had infection workup done, was started on antibiotics and pressors and admitted to the ICU. According to my discussion with the ER physician, additional tumor lysis labs were ordered including uric acid and phosphorus. Uric acid is markedly elevated. Phosphorus was also high, though the degree of elevation of not very marked. The patient did receive a dose of Elitek, and has also been seen by nephrology. Consult was placed for further evaluation and recommendations Review of Systems Constitutional: Reports poor appetite, Reports weakness, Reports weight loss Eyes: denies blurred vision, denies pain Ears: deny: decreased hearing, ear discharge, earache, tinnitus Ears, nose, mouth and throat: Denies headache, Denies sore throat Cardiovascular: Reports dyspnea on exertion Respiratory: Denies cough Gastrointestinal: Reports abdominal pain, Reports diarrhea, Reports nausea Genitourinary: Denies dysuria, Denies hematuria Menstruation: Reports postmenopausal Musculoskeletal: Reports muscle weakness Integumentary: Denies pruritus, Denies rash Neurological: Reports weakness Psychiatric: Reports anxiety Endocrine: Reports fatigue, Reports weight change Hematologic/Lymphatic: Reports as per HPI Past Medical History Past Medical History: Cancer, Hypertension Additional Past Medical History / Comment(s): heart murmur, palpatations, intestinal polyp, colon cancer (last chemo 08/12/2018), ovarian tumor History of Any Multi-Drug Resistant Organisms: None Reported Past Surgical History: Bowel Resection Additional Past Surgical History / Comment(s): 6" colon removed in 2011 Past Anesthesia/Blood Transfusion Reactions: No Reported Reaction Past Psychological History: No Psychological Hx Reported Smoking Status: Former smoker Past Alcohol Use History: Occasional Past Drug Use History: None Reported Medications and Allergies Home Medications Medication Instructions Recorded Confirmed Type Aspirin 81 mg PO DAILY 09/22/17 08/18/18 History Calcium Carbonate [Calcium] 1,200 mg PO DAILY 09/22/17 08/18/18 History Flaxseed Oil [Felton-3 Flaxseed Oil] 1,000 mg PO DAILY 09/22/17 08/18/18 History Lisinopril-Hctz 10-12.5 mg 1 tab PO DAILY 09/22/17 08/18/18 History [Zestoretic 10-12.5] Multivitamin with Iron 1 tab PO DAILY 09/22/17 08/18/18 History [Multivitamins with Iron] Red Yeast Rice 600 mg PO DAILY 09/22/17 08/18/18 History L.acidoph,Paracasei, B.lactis 1 cap PO DAILY 01/18/18 08/18/18 History [Probiotic] Magnesium Oxide [Mag-Oxide] 200 mg PO DAILY #7 tablet 03/26/18 08/18/18 Rx Doxycycline Hyclate [Vibramycin] 100 mg PO BID 08/18/18 08/18/18 History Gabapentin [Neurontin] 300 mg PO BID 08/18/18 08/18/18 History Omeprazole 40 mg PO DAILY 08/18/18 08/18/18 History Ondansetron [Zofran] 4 mg PO Q8HR PRN 08/18/18 08/18/18 History Potassium Chloride ER [K-Dur 20] 20 meq PO DAILY 08/18/18 08/18/18 History Allergies Allergy/AdvReac Type Severity Reaction Status Date / Time No Known Allergies Allergy Verified 08/18/18 11:18 Physical Exam Vitals: Vital Signs Temp Pulse Pulse Resp BP BP Pulse Ox 08/19/18 10:00 92 18 92 L 08/19/18 09:30 97 22 92 L 08/19/18 09:20 101 H 22 93 L 08/19/18 09:10 98 24 93 L 08/19/18 09:00 98 20 93 L 08/19/18 08:50 101 H 20 92/66 93 L 08/19/18 08:47 101 H 20 08/19/18 08:30 99 18 88/58 95 08/19/18 08:00 97.4 F L 102 H 21 87/60 93 L 08/19/18 07:30 97 18 89/62 95 08/19/18 07:00 98 21 87/56 91 L 08/19/18 06:30 101 H 20 85/58 91 L 08/19/18 06:00 98 19 86/56 95 08/19/18 05:30 106 H 16 87/60 95 08/19/18 05:00 106 H 16 98/69 93 L 08/19/18 04:30 97 19 90/62 95 08/19/18 04:00 97.6 F 103 H 16 79/65 94 L 08/19/18 03:30 93 16 95/60 92 L 08/19/18 03:00 92 12 82/64 95 08/19/18 02:30 95 13 81/61 94 L 08/19/18 02:00 99 29 H 98/61 93 L 08/19/18 01:30 93 12 99/66 94 L 08/19/18 01:00 95 28 H 87/67 94 L 08/19/18 00:30 98 13 96/64 94 L 10/14/18 00:18 98 22 95/64 94 L 08/19/18 00:00 97.7 F 100 16 08/18/18 23:30 105 H 13 85/63 98 08/18/18 23:00 105 H 17 85/60 92 L 08/18/18 22:30 103 H 18 81/62 93 L 08/18/18 22:00 99 17 83/62 94 L 08/18/18 21:30 96 20 77/58 94 L 08/18/18 21:00 94 19 85/63 93 L 08/18/18 20:30 96 14 82/58 94 L 08/18/18 20:13 93 L 08/18/18 20:00 97.6 F 100 23 94/65 93 L 08/18/18 19:30 95 39 H 104/70 92 L 08/18/18 19:00 93 15 86/48 93 L 08/18/18 18:30 103 H 17 80/55 95 08/18/18 18:00 103 H 16 74/53 92 L 08/18/18 17:37 97.7 F 98 20 84/56 93 L 08/18/18 17:30 98.1 F 100 22 95/61 93 L 08/18/18 17:08 98.2 F 101 H 16 99/54 98 08/18/18 16:47 90 16 98/59 98 08/18/18 16:17 91 16 101/51 97 08/18/18 15:46 98 18 98/54 97 08/18/18 15:34 97 18 100/50 98 08/18/18 14:50 94 16 97/58 98 08/18/18 14:25 99 16 98/58 99 08/18/18 14:00 96 16 88/60 99 08/18/18 12:55 100 18 88/66 94 L 08/18/18 12:09 106 H 18 87/57 98 Intake and Output 08/18/18 08/19/18 08/19/18 22:59 06:59 14:59 Intake Total 2498.454 4125 982.25 Output Total 995 665 165 Balance 46.375 1254 817.25 Intake: IV 450 1325 600 Sodium Chloride 0.9% 1, 450 1200 600 000 ml @ 150 mls/hr IV . Q6H40M [facility] Rx#:[id number] Vancomycin 1,000 mg In 125 Sodium Chloride 0.9% 250 ml @ 125 mls/hr IVPB ONCE [facility] Rx#:[id number] Intake, IV Titration 591.375 594 382.25 Amount Cefepime 2 gm In Sodium 50 Chloride 0.9% 50 ml @ 100 mls/hr IVPB Q8H [facility] Rx#: [id number] Norepinephrine 4 mg In 291.375 594 332.25 Sodium Chloride 0.9% 250 ml @ Titrate IV .Q0M [facility] Rx#:[id number] Sodium Chloride 0.9% 1, 300 000 ml @ 999 mls/hr IV . Q1H1M [facility] Rx#:[id number] Output: Urine 995 665 165 Other: Voiding Method Indwelling Catheter Indwelling Catheter Indwelling Catheter Weight 63.9 kg 64.8 kg - Constitutional General appearance: no acute distress - EENT Eyes: EOMI, PERRLA, scleral icterus ENT: hearing grossly normal, normal oropharynx - Neck Neck: no lymphadenopathy Thyroid: bilateral: normal size - Respiratory Respiratory: bilateral: CTA - Cardiovascular Rhythm: regular Heart sounds: normal: S1, S2 - Gastrointestinal General gastrointestinal: hepatomegaly, normal bowel sounds, soft - Integumentary Integumentary: normal - Neurologic Neurologic: CNII-XII intact - Musculoskeletal Musculoskeletal: generalized weakness, strength equal bilaterally - Psychiatric Psychiatric: A&O x's 3, appropriate affect Results CBC & Chem 7: 08/19/18 03:21 08/19/18 17:03 Labs: Abnormal Lab Results - Last 24 Hours (Table) 08/18/18 08/18/18 08/18/18 Range/Units 07:55 12:15 12:40 MCV (80.0-100.0) fL RDW (11.5-15.5) % Lymphocytes # (1.0-4.8) k/uL Potassium (3.5-5.1) mmol/L Chloride (98-107) mmol/L Carbon Dioxide (22-30) mmol/L BUN (7-17) mg/dL Creatinine (0.52-1.04) mg/dL Plasma Lactic Acid Bryan 3.2 H* (0.7-2.0) mmol/L Uric Acid 20.9 H* (3.7-7.4) mg/dL Phosphorus 4.8 H (2.5-4.5) mg/dL Total Bilirubin (0.2-1.3) mg/dL AST (14-36) U/L ALT (9-52) U/L Alkaline Phosphatase (38-126) U/L Troponin I (0.000-0.034) ng/mL Total Protein (6.3-8.2) g/dL Albumin (3.5-5.0) g/dL Urine Appearance (Clear) Urine Protein (Negative) Urine Blood (Negative) Ur Leukocyte Esterase (Negative) Urine WBC (0-5) /hpf Amorphous Sediment (None) /hpf Urine Bacteria (None) /hpf Hyaline Casts (0-2) /lpf Urine Mucus (None) /hpf Stool Occult Blood Positive H (Negative) 08/18/18 08/18/18 08/18/18 Range/Units 17:00 19:00 19:10 MCV (80.0-100.0) fL RDW (11.5-15.5) % Lymphocytes # (1.0-4.8) k/uL Potassium 6.4 H* (3.5-5.1) mmol/L Chloride 115 H (98-107) mmol/L Carbon Dioxide 13 L (22-30) mmol/L BUN 78 H (7-17) mg/dL Creatinine 1.31 H (0.52-1.04) mg/dL Plasma Lactic Acid Bryan (0.7-2.0) mmol/L Uric Acid (3.7-7.4) mg/dL Phosphorus (2.5-4.5) mg/dL Total Bilirubin (0.2-1.3) mg/dL AST (14-36) U/L ALT (9-52) U/L Alkaline Phosphatase (38-126) U/L Troponin I (0.000-0.034) ng/mL Total Protein (6.3-8.2) g/dL Albumin (3.5-5.0) g/dL Urine Appearance Cloudy H Cloudy H (Clear) Urine Protein Trace H Trace H (Negative) Urine Blood Moderate H Small H (Negative) Ur Leukocyte Esterase Moderate H (Negative) Urine WBC 9 H (0-5) /hpf Amorphous Sediment Rare H Occasional H (None) /hpf Urine Bacteria Rare H (None) /hpf Hyaline Casts 13 H (0-2) /lpf Urine Mucus Rare H (None) /hpf Stool Occult Blood (Negative) 08/18/18 08/18/18 08/19/18 Range/Units 20:59 20:59 03:21 MCV 109.4 H (80.0-100.0) fL RDW 22.7 H (11.5-15.5) % Lymphocytes # 0.8 L (1.0-4.8) k/uL Potassium 6.0 H (3.5-5.1) mmol/L Chloride (98-107) mmol/L Carbon Dioxide (22-30) mmol/L BUN (7-17) mg/dL Creatinine (0.52-1.04) mg/dL Plasma Lactic Acid Bryan (0.7-2.0) mmol/L Uric Acid (3.7-7.4) mg/dL Phosphorus (2.5-4.5) mg/dL Total Bilirubin (0.2-1.3) mg/dL AST (14-36) U/L ALT (9-52) U/L Alkaline Phosphatase (38-126) U/L Troponin I 0.063 H* (0.000-0.034) ng/mL Total Protein (6.3-8.2) g/dL Albumin (3.5-5.0) g/dL Urine Appearance (Clear) Urine Protein (Negative) Urine Blood (Negative) Ur Leukocyte Esterase (Negative) Urine WBC (0-5) /hpf Amorphous Sediment (None) /hpf Urine Bacteria (None) /hpf Hyaline Casts (0-2) /lpf Urine Mucus (None) /hpf Stool Occult Blood (Negative) 08/19/18 08/19/18 08/19/18 Range/Units 03:21 03:21 07:54 MCV (80.0-100.0) fL RDW (11.5-15.5) % Lymphocytes # (1.0-4.8) k/uL Potassium 5.7 H 5.7 H (3.5-5.1) mmol/L Chloride 117 H 119 H (98-107) mmol/L Carbon Dioxide 13 L 13 L (22-30) mmol/L BUN 61 H 57 H (7-17) mg/dL Creatinine 1.05 H 1.09 H (0.52-1.04) mg/dL Plasma Lactic Acid Bryan (0.7-2.0) mmol/L Uric Acid 7.9 H (3.7-7.4) mg/dL Phosphorus (2.5-4.5) mg/dL Total Bilirubin 5.2 H (0.2-1.3) mg/dL AST 2567 H (14-36) U/L ALT 466 H (9-52) U/L Alkaline Phosphatase 653 H (38-126) U/L Troponin I 0.065 H* (0.000-0.034) ng/mL Total Protein 5.6 L (6.3-8.2) g/dL Albumin 2.6 L (3.5-5.0) g/dL Urine Appearance (Clear) Urine Protein (Negative) Urine Blood (Negative) Ur Leukocyte Esterase (Negative) Urine WBC (0-5) /hpf Amorphous Sediment (None) /hpf Urine Bacteria (None) /hpf Hyaline Casts (0-2) /lpf Urine Mucus (None) /hpf Stool Occult Blood (Negative) Microbiology - Last 24 Hours (Table) 08/18/18 19:10 Urine Culture - Preliminary Urine,Catheterized Chest x-ray: report reviewed US - abdomen: report reviewed Assessment and Plan (1) SIRS (systemic inflammatory response syndrome) Narrative/Plan: The pt is presenting with SIRS, with severe hypotension, tachycardia and evidence of developing liver and hepatic decompensation. While infection is a possibility, neoplasm related events are more likely. The pt is being treated aggressively with ICU care, including pressors. She is also on broad spectrum antibiotics for possible infectious etiology. - As her cancer is more likely to be the etiology, her prognosis is very guarded Status: Acute Code(s): R65.10 - SIRS OF NON-INFECTIOUS ORIGIN W/O ACUTE ORGAN DYSFUNCTION SNOMED Code(s): 008474746 (2) Tumor lysis syndrome Narrative/Plan: The pt has multiple metabolic abnormalities, suspicious for tumor lysis. Case was d/w the ER physician in detail. Spontaneous tumor lysis would be very unusual with colon cancer. While the labs are not totally definitive, it is reasonable to treat aggressively for the same in this clinical situation. She is on aggressive hydration, and has already received a dose of Elitek. Continue hydration, and monitor labs, with repeat Elitek as needed. Tumor lysis in this clinical situation is indicative of a poor prognosis Status: Acute Code(s): E88.3 - TUMOR LYSIS SYNDROME SNOMED Code(s): 878697475 (3) Metastatic colon cancer in female Narrative/Plan: The pt had marked, significant progression within a short period of initial aggressive front line therapy. This is indicative of a very guarded prognosis. She was to start 2nd line treatment but is presenting with marked SIRS. most likely related to her underlying cancer. In that case, even with aggressive supportive care, it may be quite difficult to reverse the current presentation, making her prognosis very guarded. I thus discussed goals of care with her and her significant other. She is well aware that her cancer is not curable. With her underlying condition, if her condition worsens despite aggressive ongoing care, then there is unlikely to be any benefit from CPR /intubation. I thus recommended no code/no CPR. All their questions were answered. They were agreeable to the same. The orders for the same will be placed. Status: Acute Code(s): C18.9 - MALIGNANT NEOPLASM OF COLON, UNSPECIFIED SNOMED Code(s): 909185472
== END 2018-08-19 22:27 | disposition expired | DRG 871 ==
LOC: EC 06:49 → 6ICU 11:03 → 2SICU 08-19 08:40
PROVIDERS: ADMIT Internal Medicine; ATTEND Internal Medicine
DX: A41.9 Sepsis, unspecified organism (principal); R65.21 Severe sepsis with septic shock; E88.3 Tumor lysis syndrome; J18.9 Pneumonia, unspecified organism; C18.9 Malignant neoplasm of colon, unspecified; N17.9 Acute kidney failure, unspecified; C78.00 Secondary malignant neoplasm of unspecified lung; C78.7 Secondary malignant neoplasm of liver and intrahepatic bile duct; R64 Cachexia; E87.2 Acidosis; E83.39 Other disorders of phosphorus metabolism; I11.0 Hypertensive heart disease with heart failure; I50.9 Heart failure, unspecified; E87.5 Hyperkalemia; E86.1 Hypovolemia; D39.10 Neoplasm of uncertain behavior of unspecified ovary; T45.1X5A Adverse effect of antineoplastic and immunosuppressive drugs, initial encounter; E79.0 Hyperuricemia without signs of inflammatory arthritis and tophaceous disease; Z68.23 Body mass index [BMI] 23.0-23.9, adult; Z79.82 Long term (current) use of aspirin; Z79.899 Other long term (current) drug therapy; Z90.49 Acquired absence of other specified parts of digestive tract; Z92.21 Personal history of antineoplastic chemotherapy; Z87.891 Personal history of nicotine dependence
CPT/HCPCS: 36415; 71045; 71046; 76705; 80048; 80053; 81001; 82272; 82550; 82553; 83605; 83735; 84100; 84132; 84484; 84550; 85025; 85610; 85730; 87040; 87086; 93005; 94660; 96361; 96365; 96366; 96367; 96368; 96374; 96375; 99291